=== PATIENT | male | born 1955 | race Caucasian/White ===

== ENCOUNTER 2025-02-10 21:08 | Observation (INO) | payer MEDICARE, SELFPAY ==
--- OUTSIDE RECORDS SUMMARY | 2024-12-28 08:45 | XMS_ITS | Encounter Summary ---
Author Organization [facility] Address [address] [place] [address] Care Team Providers Care Equipment Processor Name Role Phone Ilene Canales P.A.-C. Primary Care Pro vider Reason for Referral * Outpatient (Routine) - Authorized Specialty Diagnoses / Procedures Referred By Contac t Referred To Contact Diagnoses Primary Osteoarthritis Knee Left Procedures lzf-mbkr-nenthdft-elbow arthrocentesis: L knee joint Melva Caceres P.A.-C., P.A. [address] [place] [phone] Phone: tel: fax: [facility] Region Referral ID Status Reason Start Date Expiration Date V isits Requested Visits Authorized [id number] Authorized 12/28/2024 03/30/2026 1 1 Reason for Visit * Reason Comments Arthritis Pain Injection Visit * Outpatient (Routine) - Closed Specialty Diagnoses / Procedures Referred By Contac t Referred To Contact Orthopedic Surgery Diagnoses Primary Osteoarthritis Knee Left Procedures ORS Non-Guided aspiration/injection Melva Caceres P.A.-C., P.A. [address] [place] [address] Phone: tel: fax: [facility] Region Referral ID Status Reason Start Date Expiration Date Visits Re quested Visits Authorized [id number] Closed 12/21/2024 03/23/2026 1 1 Encounter Details Date Type Department Care Team (Latest Contact Info) Description 12/28/2024 8:45 AM CDT Procedure visit Department of Orthopedic Surgery in [place], [place] [address] [phone] Melva Caceres P.A.-C., P.A. [address] [place] [address] Primary Osteoarthritis Knee Left (Primary Dx) Social History Tobacco Use Types Packs/Day Years Used Date Smoking Tobacco: Some Days Cigarettes 0.5 55.1 Started: [birth year]/26/1969 Smokeless Tobacco: Never Alcohol Use Standard Drinks/Week Comments Not Currently 1 (1 standard drink = 0.6 oz pur e alcohol) Humiliation, Afraid, Rape, and Kick questionnair e Answer Date Recorded Within the last year, have y ou been afraid of your partner or ex-partner? No 01/27/2022 Within the last year, have y ou been humiliated or emotionally abused in other ways by your partner or ex-partner? No Within the last year, have y ou been kicked, hit, slapped, or otherwise physically hurt by your partner or ex-partner? No 01/27/2022 Within the last year, have y ou been raped or forced to have any kind of sexual activity by your partner or ex-partner? No 01/27/2022 Hunger Vital Sign Answer Date Recorded Within the past 12 months, y ou worried that your food would run out before you got the money to buy more. Sometimes true Within the past 12 months, t he food you bought just didn't last and you didn't have money to get more. Often true 01/2022 PRAPARE - Transportation Answer Date Re corded In the past 12 months, has l ack of transportation kept you from medical appointments or from getting medications? Yes 01/2022 In the past 12 months, has l ack of transportation kept you from meetings, work, or from getting things needed for daily living? Yes 01/27/2022 Housing Stability Vital Sign Answer Maycol e Recorded In the last 12 months, was t here a time when you were not able to pay the mortgage or rent on time? No 01/27/2022 In the last 12 months, how many places have you lived? 1 01/27/2022 In the last 12 months, was t here a time when you did not have a steady place to sleep or slept in a penitentiary (including now)? No 01/27/2022 Depression Answer Date Recor ded PHQ-9 Total Score (max 27) 5 12/02 Education Answer Date Recorded What is the highest level of school you have completed or the highest degree you have received? 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 - 12/28/2024 8:45 AM CDTAssociated Order(s): evs-icjo-hddmtdoe-elbow arthrocentesis: L knee joint Post-Procedure Diagnose(s): Primary Osteoarthritis Knee Left Knee site- L knee joint : injection only Performed by: Melva Caceres P.A.-C., P.A. Authorized by: Melva Caceres P.A.-C., P.A. PROCEDURE DETAILS Indications: pain Procedure Location knee Knee site: L knee joint Site prep: patient was prepped and draped in usual sterile fashion Patient position: seated Procedural approach: anterolateral Procedure performed: injection only Needle gauge: 21 G Procedural Medication The following medications were administered at the target site(s) Viscosupplement: 16 mg hylan g-f 20 16 mg/2 mL CONSENT Consent obtained: written (Risks, benefits and alternatives were discussed and a written Informed Consent was obtained. Please see Informed Consent form for further details.) UNIVERSAL PROTOCOL All relevant documentation and testing were reviewed and available. All required blood products, implants, devices and or special equipment were made available as applicable. Pre-procedure verification was conducted and the correct site was marked if required. A fire risk and smoke assessment were done as applicable. The procedural time-out to verify correct patient, correct side/site, and procedure was conducted prior to performing the procedure and confirmed in a procedural pause. PRE-PROCEDURE DETAILS Procedure purpose: therapeutic Indications: pain Appropriate hand hygiene, gown, cap, mask, protective eyewear, sterile gloves, skin preparation, sterile drape, and strict aseptic technique were utilized as applicable for the procedure. Site preparation: chlorhexidine SEDATION / ANESTHESIA Anesthesia method: topical application Topical application type: ethyl chloride POST-PROCEDURE DETAILS Procedure completed successfully: yes Complications: no apparent complications Discharge instructions: ice area as needed for comfort #2 Left knee Synvisc injection, he has noticed a lot of improvement already. He will return next week for the final injection in the series. documented in this encounter Plan of Treatment Upcoming Encounters Date Type Department Care Team (Late st Contact Info) Description 03/07/2025 10:00 AM CDT Office Visit Department of Community Internal Medicine in [place], [place] [address] [place] [address] Ilene Canales MPAS, P.Renetta.-CKevin [address] [place] [address] documented as of this encounter Procedures Procedure Name Priority Date/Time Associated Diagnosis Comments ORS NON-GUIDED ASPIRATION/INJECTI ON Routine 12/28/2024 8:45 AM CDT Primary Osteoarthritis Knee Left [place] ARTHCS ASP/INJ MJR JT WO US Routine 12/28/2024 8:45 AM CDT Primary Osteoarthritis Knee Left documented in this encounter Results * [place] ARTHCS ASP/INJ MJR JT WO US (12/28/2024 8:45 AM CDT) Narrative [facility] - 12/28/2024 8:45 AM CDT Melva Caceres P.A.-C., P.Lissy 12/28/2024 9:03 AM Knee site- L knee joint : injection only Performed by: Melva Caceres P.A.-C., PMonie Authorized by: Melva Caceres P.A.-C., PMonie PROCEDURE DETAILS Indications: pain Procedure Location knee Knee site: L knee joint Site prep: patient was prepped and draped in usual sterile fashion Patient position: seated Procedural approach: anterolateral Procedure performed: injection only Needle gauge: 21 G Procedural Medication The following medications were administered at the target site(s) Viscosupplement: 16 mg hylan g-f 20 16 mg/2 mL CONSENT Consent obtained: written (Risks, benefits and alternatives were discussed and a written Informed Consent was obtained. Please see Informed Consent form for further details.) UNIVERSAL PROTOCOL All relevant documentation and testing were reviewed and available. All required blood products, implants, devices and or special equipment were made available as applicable. Pre-procedure verification was conducted and the correct site was marked if required. A fire risk and smoke assessment were done as applicable. The procedural time-out to verify correct patient, correct side/site, and procedure was conducted prior to performing the procedure and confirmed in a procedural pause. PRE-PROCEDURE DETAILS Procedure purpose: therapeutic Indications: pain Appropriate hand hygiene, gown, cap, mask, protective eyewear, sterile gloves, skin preparation, sterile drape, and strict aseptic technique were utilized as applicable for the procedure. Site preparation: chlorhexidine SEDATION / ANESTHESIA Anesthesia method: topical application Topical application type: ethyl chloride POST-PROCEDURE DETAILS Procedure completed successfully: yes Complications: no apparent complications Discharge instructions: ice area as needed for comfort us Melva Caceres P.A.-C., P.AKevin PROCEDURE/MINOR SURGICAL ORDERABLES Final Result [facility] NA documented in this encounter Visit Diagnoses Diagnosis Primary Osteoarthritis Knee Left- Primary documented in this encounter Administered Medications Inactive Administered Medications - up to 3 most recent administrations Medication Order MAR Action Action Date Dose Rate Site hylan g-f 20 injection 16 mg (Synvisc) 16 mg, intra-articular, One-Time Injection, Starting on Thu12/28/24 at 0845, For 1 doseIndications:Primary Osteoarthritis Knee Left Given 12/28/2024 8:45 AM CDT 16 mg documented in this encounter Additional Health Concerns Assessment Noted Time PHQ-9 Depression Total Score: 5 12/03/19 25 10:43 AM CDT documented as of this encounter Care Teams Equipment Processor Relationship Specialty Start Date End Date Ilene Canales MPAS, P.A.-C. [address] [place] [address] [place] [phone] PCP - General 08/28/22 documented as of this encounter
--- OUTSIDE RECORDS SUMMARY | 2025-02-01 08:30 | XMS_ITS | Encounter Summary ---
Author Organization [facility] Address [address] [place] [address] Care Team Providers Care Chief Quality Officer Name Role Phone Ilene Canales P.A.-C. Primary Care Pro vider Reason for Referral * Outpatient (Routine) - Authorized Specialty Diagnoses / Procedures Referred By Antonella pakrs Referred To Contact Diagnoses Primary Osteoarthritis Knee Left Procedures opj-mgzk-zetkewsb-elbow arthrocentesis: L knee joint Melva Caceres P.A.-C., P.A. [address] [address] Phone: tel: fax: [facility] Region Referral ID Status Reason Start Date Expiration Date V isits Requested Visits Authorized [id number] Authorized 02/01/2025 05/04/2026 1 1 Reason for Visit * Reason Comments Arthritis Injection Visit * Appointment Request (Routine) - Closed Specialty Diagnoses / Procedures Referred By Antonella t Referred To Contact Orthopedic Surgery Referral ID Status Reason Start Date Expiration Date Visits Re quested Visits Authorized [id number] Closed 12/21/2024 03/23/2026 1 1 Encounter Details Date Type Department Care Team (Latest Contact Info) Description 02/01/2025 8:30 AM CDT Office Visit Department of Orthopedic Surgery in [address] [phone] Melva Caceres P.A.-C., P.A. [address] [phone] Primary Osteoarthritis Knee Left (Primary Dx) Social History Tobacco Use Types Packs/Day Years Used Date Smoking Tobacco: Some Days Cigarettes 0.5 55.1 Started: [birth year]/26/1969 Smokeless Tobacco: Never Alcohol Use Standard Drinks/Week Comments Not Currently 1 (1 standard drink = 0.6 oz pur e alcohol) [facility] Utilities Answer Date Recorded In the past 12 months has e electric, gas, oil, or water company threatened to shut off services in your home? No 02/01/2025 Humiliation, Afraid, Rape, and Kick questionnair e [...] you didn't have money to get more. Sometimes true 06/2025 PRAPARE - Transportation Answer Date Re corded In the past 12 months, has l ack of transportation kept you from medical appointments or from getting medications? Yes 01/22 In the past 12 months, has l ack of transportation kept you from meetings, work, or from getting things needed for daily living? Yes 02/01/2025 Depression Answer Date Recor ded PHQ-9 Total Score (max 27) 10 02/01 Housing Stability Answer Date Recorded What is your living situation today? I have a [place] place to live 02/01/2025 Education Answer Date Recorded What is the highest level of school you have completed or the highest degree you have received? 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 - 02/01/2025 8:30 AM CDTAssociated Order(s): xub-pzou-gesrosey-elbow arthrocentesis: L knee joint Post-Procedure Diagnose(s): Primary [...] instructions: ice area as needed for comfort #3 Left knee Synvisc injection performed today. We will contact him in a few weeks to see how he isfeeling after this series of injections. documented in this encounter Plan of Treatment Upcoming Encounters Date Type Department Care Team (Late st Contact Info) Description 03/07/2025 10:00 AM CDT Office Visit Department of Community Internal Medicine in [address] [phone] Ilene Canales MPAS, P.A.-C. [address] [place] [phone] documented as of this encounter Procedures Procedure Name Priority Date/Time Associated Diagnosis Comments [place] ARTHCS ASP/INJ MJR JT WO US Routine 02/01/2025 8:30 AM CDT Primary Osteoarthritis Knee Left documented in this encounter Results * [place] ARTHCS ASP/INJ MJR JT WO US (02/01/2025 8:30 AM CDT) Narrative [facility] - 02/01/2025 8:30 AM CDT Melva Caceres P.A.-C., P.A. 02/01/2025 8:30 AM Knee site- L knee joint : [...] instructions: ice area as needed for comfort Melva Sim.Renetta.Delio., P.A. PROCEDURE/MINOR SURGICAL ORDERABLES Final Result [facility] NA documented in this encounter Visit Diagnoses Diagnosis Primary Osteoarthritis Knee Left- Primary documented in this encounter Administered Medications Inactive Administered Medications - up to 3 most recent administrations Medication Order MAR Action Action Date Dose Rate Site hylan g-f 20 injection 16 mg (Synvisc) 16 mg, intra-articular, One-Time Injection, Starting on Thu02/01/25 at 0830, For 1 doseIndications:Primary Osteoarthritis Knee Left Given 02/01/2025 8:30 AM CDT 16 mg documented in this encounter Additional Health Concerns Assessment Noted Time PHQ-9 Depression Total Score: 10 025 3:00 PM CDT documented as of this encounter Care Teams Chief Quality Officer Relationship Specialty Start Date End Date Ilene Canales MPAS, P.A.-C. [address] [place] [phone] PCP - General 08/28/22 documented as of this encounter
--- OUTSIDE RECORDS SUMMARY | 2025-02-01 15:00 | XMS_ITS | Encounter Summary ---
Author Organization [facility] Address [address] [place] [address] Care Team Providers Care Criminal Justice Instructor Name Role Phone Ilene Canales P.A.-C. Primary Care Pro vider Reason for Referral * Outpatient (Routine) - Authorized Specialty Diagnoses / Procedures Referred By Antonella t Referred To Contact [facility] Ilene Canales MPAS, P.A.-C. [address] [place] [address] Phone: tel: fax: [facility] Region Referral ID Status Reason Start Date Expiration Date V isits Requested Visits Authorized [id number] Authorized 02/01/2025 08/03/2026 1 1 Reason for Visit * Reason Comments Follow-up 2 month f/u depressi on, left ear pain x1 month, fatigue * Outpatient (Routine) - Closed Specialty Diagnoses / Procedures Referred By Contanant t [facility] Ilene Canales MPAS, P.A.-C. [address] [place] [address] Phone: tel: fax: [facility] Region Referral ID Status Reason Start Date Expiration Date Visits Re quested Visits Authorized [id number] Closed 12/02/2024 06/03/2026 1 1 Encounter Details Date Type Department Care Team (Late st Contact Info) Description 02/01/2025 3:00 PM CDT Office Visit Department of [facility] in [place], [place] [address] [facility] [place] [phone] Ilene Canales MPAS PKevinAKevin-C. [address] [facility] [place] [address] Depression Major Recurrent Moderate (HCC) (Primary Dx); Narcolepsy (HCC); Dysfunction Erectile; Pain Ear Left; History Of Falling Social History Tobacco Use Types Packs/Day Years Used Date Smoking Tobacco: Some Days Cigarettes 0.5 55.1 Started: [birth year]/26/1969 Smokeless Tobacco: Never Alcohol Use Standard Drinks/Week Comments Not Currently 1 (1 standard drink = 0.6 oz pur e alcohol) [facility] Utilities Answer Date Recorded In the past [address] [facility], gas, oil, or water Myrl threatened to shut off services in your [...] your living situation today? I have a [facility] place to live 02/01/2025 Education Answer Date Recorded What is the highest level of school you have completed or the highest degree you have received? 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 Occupation Industry Job Start Date Job End Date retired Not on file Not on file Not on file documented as of this encounter Last Filed Vital Signs Vital Sign Reading Time Taken Comments Blood Pressure 120/78 02/01/2025 3:[address] rage Pulse 96 02/01/2025 3:11 PM CDT Temperature 35.8 C (96.4 F) 02/01/2025 3:11 PM CDT Respiratory Rate 20 02/01/2025 3:11 PM CDT Oxygen Saturation - - Inhaled Oxygen Concentration - - Weight 85.8 kg (189 lb 2.5 oz) 02/01/2025 3:11 P M CDT Height - - Body Mass Index 28.67 12/02/2024 10:37 AM CDT documented in this encounter Progress Notes * Ilene Canales MPAS, P.A.-C. - 02/01/2025 3:00 PM CDT SUBJECTIVE CHIEF COMPLAINT/REASON FOR VISIT Chief Complaint Patient presents with Follow-up 2 month f/u depression, left ear pain x1 month, fatigue HISTORY OF PRESENT ILLNESS Hank Spangler is a pleasant 69 y.o. male with a past medical history of depression, anxiety,narcolepsy who presents to the clinic today for follow-up. At our previous clinic visit, fluoxetinewas increased from 40 mg daily to 60 mg daily. He has not felt this dose increase has been beneficial for mental health. He feels he has continued to struggle with depression, not much anxiety. He floyd cummins feels sad most of the time but he does not feel depressed. He feels little energy and decreased motivation to complete tasks. He has been taking more naps during the day to lack of ambition. He used to walk outside but has not felt as though he has motivation to do this. He is prescribed mirtazapine at bedtime but says he has not been taking this and does not feel it is needed. Prozac has nev er been beneficial for him for depression since he started taking this medication years ago. He is not sure if he has been on other antidepressant medications previously. He also has concern of left ear pain ongoing intermittently for 1 month. Denies itching or drainage from ear. Denies a sensationof muffled hearing or hearing loss in left ear. He would also like a refill for Viagra and wonders about a new formulation of Viagra. The following portions of the patient's history were reviewed and updated as appropriate: current medications and problem list. Problem List[1] ALLERGIES/CONTRAINDICATIONS Allergies[2] CURRENT MEDICATIONS Current Medications[3] OBJECTIVE VITAL SIGNS Vitals: 02/01/25 1511 BP: 120/78 Pulse: 96 Resp: 20 Temp: (!) 35.8 ??C PHYSICAL EXAMINATION General: Well-nourished, well-developed 69 y.o. in no apparent distress. Awake, alert, age appropriate. HEENT: Left ear canal with mild edema compared to right ear canal. No drainage from ear canals bilaterally. Difficult time fully visualizing left tympanic membrane due to pain with otoscope exam leftear. I can see approximately 80% of the TM and it appears cloudy without perforation. No erythema of left TM. ASSESSMENT / PLAN IMPRESSION/REPORT/PLAN: #1 Depression Major Recurrent Moderate (HCC) PHQ-9 score of 10 in clinic today. He has symptoms suggestive of depression such as low ambition, decreased energy, and sad mood. He did not find dose increase in fluoxetine beneficial at our last visit. Today, we will transition fluoxetine 60 mg daily to sertraline 100 mg daily. Per chart review, he has been prescribed sertraline previously but I do not see a clear reason why this medication wasdiscontinued. Follow-up in 1 month. #2 Narcolepsy (HCC) He will continue to follow with Sleep Medicine and will continue Adderall 30 mg TID. #3 Dysfunction Erectile Refill of Viagra has been provided #4 Pain Ear Left We will treat for mild otitis externa left ear with hydrocortisone-acetic acid ear drops for 7 days. Encouraged patient to follow-up if symptoms do not improve. #5 History Of Falling We did not discuss any recent falls today. Other orders - [facility] office visit (clinic) - sertraline (Zoloft) 100 mg tablet; Take 1 tablet (100 mg total) by mouth daily., Starting Thu02/01/2025, Normal - [facility] office visit (clinic); Future; Expected date: 03/03/2025 - hydrocortisone-acetic acid (Acetasol HC) 1-2 % otic drops; Administer 4 drops into the left ear 4(four) times a day for 7 days., Starting Thu02/01/2025, Until 02/12/2025, Normal - sildenafiL (Viagra) 100 mg tablet; Take 1 tablet (100 mg total) by mouth daily as needed for erectile dysfunction., Starting Thu02/01/2025, Normal If symptoms worsen or do not improve, patient is instructed to seek further medical attention. All questions have been answered. Patient demonstrated understanding and verbalized agreement with the plan. Total time spent: 30 minutes Follow-up: 1 month PAVEL Ferraro, P.A.-C. [1] Patient Active Problem List Diagnosis Dysthymia Hypertension Essential Primary Narcolepsy (HCC) Gastroesophageal Reflux Disease Attention Deficit Disorder Combined Type Apnea Sleep Obstructive Benign Prostatic Hyperplasia Without Obstruction Benign paroxysmal positional vertigo Depression Major Recurrent Moderate (HCC) Primary Osteoarthritis Knee Left Diabetes Mellitus Type 2 Hyperglycemia (HCC) Herniated Disc Lumbar History Of Falling Hyperlipidemia Tobacco Use Pain [place] Toe Left Alcoholism Personal History ([facility]) Sciatica Right Pain Low Back Unspecified Portal Vein Thrombosis Tear Rotator Cuff Complete Non Trauma Left Rosacea Dysfunction Erectile Anxiety Generalized Disorder [2] No Known Allergies [3] Current Outpatient Medications: atorvastatin (LIPITOR) 40 mg tablet, take one tablet by mouth every day, Disp: 90 tablet, Rfl: 3 dextroamphetamine-amphetamine (AdderalL) 30 mg tablet, Take 1 tablet (30 mg total) by mouth 3 (three) times a day for 30 days., Disp: 90 tablet, Rfl: 0 DME CPAP, DME Order, Disp: 1 each, Rfl: 11 hydroCHLOROthiazide (HydroDiuril) 25 mg tablet, TAKE 1 TABLET (25 MG TOTAL) BY MOUTH DAILY., Disp: 90 tablet, Rfl: 3 ketoconazole (NIZORAL) 2 % shampoo, APPLY TOPICALLY TWICE A WEEK. APPLY TO DAMP SKIN, LATHER, LEAVEON 5 MINUTES AND RINSE, Disp: 120 mL, Rfl: 11 lisinopriL (PRINIVIL,ZESTRIL) 40 mg tablet, Take 1 tablet (40 mg total) by mouth daily., Disp: 90 tablet, Rfl: 3 meloxicam (Mobic) 15 mg tablet, TAKE 1 TABLET BY MOUTH ONCE DAILY NEEDED FOR PAIN OR MODERATE PAIN OR SCORE 4-6 OF 10, Disp: 90 tablet, Rfl: 1 metFORMIN XR (Glucophage-XR) 500 mg 24 hr tablet, TAKE TWO TABLETS(1000MG) BY MOUTH DAILY WITH BREAKFAST, Disp: 180 tablet, Rfl: 3 metroNIDAZOLE (MetroCream) 0.75 % cream, APPLY 1 APPLICATION TOPICALLY DAILY., Disp: 45 g, Rfl: 2 pantoprazole (Protonix) 40 mg EC tablet, Take 1 tablet (40 mg total) by mouth daily as needed for heartburn., Disp: , Rfl: sildenafiL (Viagra) 100 mg tablet, Take 1 tablet (100 mg total) by mouth daily as needed for erectile dysfunction., Disp: 20 tablet, Rfl: 0 tamsulosin (Flomax) 0.4 mg 24 hr capsule, TAKE ONE CAPSULE BY MOUTH ONCE DAILY., Disp: 90 capsule, Rfl: 3 hydrocortisone-acetic acid (Acetasol HC) 1-2 % otic drops, Administer 4 drops into the left ear 4 (four) times a day for 7 days., Disp: 10 mL, Rfl: 0 sertraline (Zoloft) 100 mg tablet, Take 1 tablet (100 mg total) by mouth daily., Disp: 90 tablet, Rfl: 0 documented in this encounter Plan of Treatment Upcoming Encounters Date Type Department Care Team (Late st Contact Info) Description 03/07/2025 10:00 AM CDT Office Visit [facility] of [facility] in [address] [place] [phone] Ilene Canales MPAS, PKevinA.-C. [address] [facility] [place] [phone] Scheduled Referrals Name Type Priority Associated Diagnoses Orde r Schedule [facility] office visit (clinic) Outpatient Referral Routine Expected: 03/03/2025 (Approximate), Expires: 05/04/2026 documented as of this encounter Visit Diagnoses Diagnosis Depression Major Recurrent Moderate (HCC)- Primary Narcolepsy (HCC) Dysfunction Erectile Pain Ear Left History Of Falling documented in this encounter Additional Health Concerns Assessment Noted Time PHQ-9 Depression Total Score: 10 025 3:00 PM CDT documented as of this encounter Care Teams Criminal Justice Instructor Relationship Specialty Start Date End Date Ilene Canales MPAS, P.A.-C. [address] [place] [phone] PCP - General 08/28/22 documented as of this encounter
[2025-02-10] VITALS (13 sets, daily range): BP systolic 79–111; BP diastolic 41–67; PULSE 74–98; RESP 7–35; TEMP 36.6; O2SAT 93–97; BMI 28.5
--- NOTE | 2025-02-10 21:22 | ED.SOB ---
HPI - SOB/Dyspnea General Time Seen by Provider: 21:22 Date Seen: 02/10/25 Chief Complaint: Shortness of Breath/Dyspnea Stated Complaint: SOB, Dizzy, Confusion Time Seen by Provider: 02/10/25 21:21 Source: patient and RN notes reviewed Mode of arrival: ambulatory Limitations: no limitations History of Present Illness HPI Narrative: This 70-year-old male is ambulatory into the ED coming in with episodes of feeling short of breath and dizzy. He noted left hip, left lower groin pain today as well. He has had pain in his back and into his neck. He did walk outside for while today, his daughter did call in and states he was outside a lot today but he states he just walked somewhere. She states when he gets these spells he turns really white gets confused and will stumble around. He denies any alcohol. He denies any abdominal pain now, no chest pain, no palpitations. His daughter did note the only other time she has seen him act like this is when his blood pressure has been low. She states he has had spells of low blood pressure, I a cannot get any further details other than this. He has had no fevers chills, is not feeling sick. He only has a history of hypertension per report. Did look in [facility] for history: He has had a history of depression, anxiety, narcolepsy for which he was most recently seen at [facility] in [place]. Hypertension GERD, ADD combined type, obstructive sleep apnea, BPH, benign paroxysmal positional vertigo, osteoarthritis, type 2 diabetes, lumbar disc herniation, history of falling, hyperlipidemia, tobacco use, history of alcohol use, portal vein thrombosis, left nontraumatic rotator cuff tear, rosacea, rectal dysfunction are all listed. I do see a kidney stone analysis ordered in labs. Do not see old creatinine is a outside of the 1 we have from 2003 here which was 0.8. He has a diagnosis of kidney stone from an ED visit here on 06/30/2019. Related Data Home Medications ?Medication ?Instructions ?Recorded ?Confirmed atorvastatin 40 mg tablet 40 mg PO DAILY 02/10/25 02/10/25 dextroamphetamine-amphetamine 30 1 tab PO 3XD 02/10/25 02/10/25 mg tablet hydrochlorothiazide 25 mg tablet 25 mg PO DAILY 02/10/25 02/10/25 Allergies Allergy/AdvReac Type Severity Reaction Status Date / Time No Known Drug Allergies Allergy Verified 01/30/23 19:50 Review of Systems Status of ROS: Reports: 6 or more systems reviewed and unremarkable except as noted in History and below [facility] Social History Smoking Status: Current every day smoker Non-prescribed substance use: denies use Exam Const: Vital Signs, click to edit/add: Vital Signs - 24 hr 02/10/25 21:17 02/10/25 21:24 02/10/25 21:27 Temperature 97.8 F Pulse Rate 91 Pulse Rate [Pulse Oximeter] 98 Respiratory Rate 20 22 Blood Pressure 79/57 L Blood Pressure [Ri ght Upper Arm] 82/67 L Pulse Oximetry 96 95 94 Oxygen Delivery Me thod Room Air 02/10/25 21:36 02/10/25 22:06 02/10/25 22:16 Temperature Pulse Rate 83 80 Pulse Rate [Pulse Oximeter] Respiratory Rate 18 15 18 Blood Pressure 82/51 L 96/63 82/54 L Blood Pressure [Ri ght Upper Arm] Pulse Oximetry 97 94 Oxygen Delivery Me thod 02/10/25 22:33 02/10/25 22:46 02/10/25 22:58 Temperature Pulse Rate 79 77 78 Pulse Rate [Pulse Oximeter] Respiratory Rate 22 19 18 Blood Pressure 91/49 L 86/41 L 97/53 L Blood Pressure [Ri ght Upper Arm] Pulse Oximetry 95 93 95 Oxygen Delivery Me thod 02/10/25 23:01 02/10/25 23:17 02/10/25 23:31 Temperature Pulse Rate 76 76 74 Pulse Rate [Pulse Oximeter] Respiratory Rate 7 L 35 H 16 Blood Pressure 111/57 L 94/45 L 94/44 L Blood Pressure [Ri ght Upper Arm] Pulse Oximetry 97 94 96 Oxygen Delivery Me thod 02/10/25 23:46 Temperature Pulse Rate 75 Pulse Rate [Pulse Oximeter] Respiratory Rate 16 Blood Pressure 101/49 L Blood Pressure [Ri ght Upper Arm] Pulse Oximetry 94 Oxygen Delivery Me thod This 70-year-old male is alert, interactive, no apparent distress. He is alert, interactive but hypotensive. He is able to speak in complete sentences. Skin is warm but sweaty. No rash noted. Pupils are equal round, conjugate gaze, sclera clear. Symmetrical facial function. Neck supple, no adenopathy, no thyromegaly masses or nodules, jugular venous distension. Lungs are clear, good air entry, no wheezing or crackles he is able to sit up. CV regular rate and rhythm, no murmur, normal S1-S2, no S3-S4. Abdomen is completely soft, nontender, nondistended, no organomegaly, rebound or guarding. He has no groin pain, no pain with range of motion of his left hip. No lower extremity edema noted. Patient was ambulatory into the ED of his own accord. Documenting provider has reviewed patient's vital signs: yes Course Course ED Course: This patient is coming in with a multitude of complaints and hypotension. His daughter is reporting other spells of hypotension but no really reason for this. Need to consider infectious etiology including sepsis, cardiopulmonary issues, will get D-dimer looking at vascular issues including PEs, dissection. Patient is currently pain-free and symptom-free right now outside of his blood pressure being low. Will initiate a L of fluids. Will be doing a full complement of labs. This left hip or groin pain, left lower quadrant pain may have been consistent with a kidney stone. His creatinine has jumped in the last 2 years and is currently 2.6, do not have anything in between to compare to. Need to look for renal issues, obstructive pathology. Reevaluation(s) Time of Reevaluation #1: 23:01 Reevaluation #1: Patient is completed 2 L of fluid, still has not urinated. Bladder is really decompressed on CT from what I am seeing. Will give 3 L of fluids while we await CT to be read. Consultations Consultation #1: Paged the night hospitalist Dr. Ingram. She is likely to take a while to call back as she was just paged to a rapid response. 1:00 a.m.: Did speak with Dr. Ingram. Reviewed patient's case. Will get a repeat lactate, she did want blood cultures as well. Will also get an alcohol as this was missed on initial labs. Will get urine drug screen at her request. She would like him to have 2 g IV Rocephin in case this is urinary infection and his bladder just really is not showing much because he is dehydrated. She does accept care. Patient is updated. He is agreeable to stay. Time: 00:03 Vital Signs Vital signs: Initial Vital Signs Temperature 97.8 F 02/10/25 21:17 Temperature Source Temporal Artery Scan 02/10/25 21:17 Pulse Rate 98 02/10/25 21:17 Respiratory Rate 20 02/10/25 21:17 Blood Pressure 82/67 L 02/10/25 21:17 Blood Pressure Mean 72 02/10/25 21:17 Blood Pressure Position Sitting 02/10/25 21:17 Pulse Oximetry 96 02/10/25 21:17 Oxygen Delivery Method Room Air 02/10/25 21:17 Vital Signs Temperature 97.8 F 02/10/25 21:17 Pulse Rate 98 02/10/25 21:17 Respiratory Rate 20 02/10/25 21:17 Blood Pressure 82/67 L 02/10/25 21:17 Pulse Oximetry 96 02/10/25 21:17 Oxygen Delivery Method Room Air 02/10/25 21:17 Temperature 97.8 F 02/10/25 21:17 Pulse Rate 75 02/10/25 23:46 Respiratory Rate 16 02/10/25 23:46 Blood Pressure 101/49 L 02/10/25 23:46 Pulse Oximetry 94 02/10/25 23:46 Oxygen Delivery Method Room Air 02/10/25 21:17 Medications Administered Medications: Generic Name Dose Route Start Last Admin Trade Name Freq PRN Reason Stop Dose Admin Sodium Chloride 1,000 mls @ 500 mls/hr 02/10/25 23:01 02/11/25 00:27 0.9 % Sodium Chloride 1000 Ml IV 02/11/25 01:00 Infused .Q2H FERMÍN Infusion Discontinued Medications Generic Name Dose Route Start Last Admin Trade Name Freq PRN Reason Stop Dose Admin Sodium Chloride 1,000 mls @ 1,000 mls/hr 02/10/25 21:29 02/10/25 22:31 0.9 % Sodium Chloride 1000 Ml IV 02/10/25 22:28 Infused .Q1H FERMÍN Infusion Sodium Chloride 1,000 mls @ 500 mls/hr 02/10/25 22:12 02/11/25 00:28 0.9 % Sodium Chloride 1000 Ml IV 02/11/25 00:11 Infused .Q2H FERMÍN Infusion MDM - SOB/Dyspnea Lab Data Attestation: I reviewed the patient's lab results. Labs: Lab Results 02/10/25 02/10/25 02/10/25 Range/Units 21:25 21:40 23:32 WBC 13.04 H (4.50-11.00) K/uL RBC 4.82 (4.30-5.90) m/uL Hgb 14.9 (13.5-17.5) gm/dL Hct 44.0 (37.0-53.0) % MCV 91 (80-100) fL MCH 31 (26-34) pg MCHC 34 (32-36) gm/dL RDW Coeff of Joyce 13.6 (11.5-15.5) % Plt Count 305 (140-440) K/uL Neut % (Auto) 74.3 H (42.0-72.0) % Lymph % (Auto) 10.8 L (20-44) % [place] % (Auto) 7.5 (0.0-11.0) % Eos % (Auto) 6.3 (0.0-7.0) % Baso % (Auto) 0.6 (0.0-3.0) % Neut # (Auto) 9.70 H (1.7-7.0) K/uL Lymph # (Auto) 1.40 (0.90-2.90) K/uL [place] # (Auto) 1.00 H (0.00-0.90) K/UL Eos # (Auto) 0.80 H (0.00-0.50) K/uL Baso # (Auto) 0.10 (0.00-0.30) K/uL Abs Immat Gran (auto) 0.10 (0.00-0.30) K/uL Imm/Tot Granulo (auto) 0.5 % INR 0.90 L (0.91-1.10) APTT 29 (23-33) Seconds D-Dimer Quant (PE/DVT) 0.47 (0.00-0.50) ug/ml VBG pH 7.338 (7.32-7.43) VBG pCO2 45 (40-50) mmHG VBG pO2 31.1 (25-47) mmHG VBG HCO3 24 (21-28) mmol/L Sodium 139 (135-149) mmol/L Potassium 3.4 L (3.6-5.1) mmol/L Chloride 104 (96-114) mmol/L Carbon Dioxide 22 (20-32) mmol/L Anion Gap 13 (7-15) mEq/L BUN 30 (7-30) mg/dL Creatinine 2.4 H (0.5-1.5) mg/dL Estimated Creat Clear 26.78 Estimated GFR 28 ml/min Glucose 192 H (60-115) mg/dL Lactate 2.8 H (0.5-1.9) mmol/L Calcium 9.7 (8.4-10.6) mg/dL Total Bilirubin 0.6 (0.1-1.5) mg/dL AST 23 (12-35) U/L ALT 28 (4-50) U/L Alkaline Phosphatase 79 (40-150) U/L Troponin I 0.02 (0.01-0.04) ng/mL C-Reactive Protein < 0.5 L (0.5-1.0) mg/dL NT-Pro-B Natriuret Pep 278 (See Note) pg/mL Total Protein 7.0 (6.0-8.3) g/dL Albumin 4.3 (3.3-5.0) g/dL Procalcitonin 0.17 (<0.50) ng/mL Urine Color Yellow (Yellow) Urine Appearance Slightly Cloudy A (Clear) Urine pH 5.5 (5.0-8.5) Ur Specific [place] >= 1.030 (1.000-1.030) Urine Protein 3+ A (Negative) Urine Glucose (UA) Negative (Negative) Urine Ketones 1+ A (Negative) Urine Blood 3+ A (Negative) Urine Nitrite Negative (Negative) Urine Bilirubin 1+ A (Negative) Urine Urobilinogen 0.2 (0.2-1.0) Ur Leukocyte Esterase 1+ A (Negative) Urine RBC 5-10 A (0-2) Urine WBC 2-5 (0-5) Ur Squamous Epith Cells None (None-Few) Urine Bacteria None (None) SARS-CoV-2 (PCR) Negative SARS-CoV-2 (Negative) Influenza Type A (PCR) Negative PCR FLU A (Negative) Influenza Type B (PCR) Negative PCR FLU B (Negative) RSV (PCR) Negative PCR RSV (Negative) POC Creatinine 2.6 H (0.6-1.3) mg/dl POC Troponin I 0.01 (0.01-0.04) ng/ml 02/10/25 Range/Units 23:40 WBC (4.50-11.00) K/uL RBC (4.30-5.90) m/uL Hgb (13.5-17.5) gm/dL Hct (37.0-53.0) % MCV (80-100) fL MCH (26-34) pg MCHC (32-36) gm/dL RDW Coeff of Joyce (11.5-15.5) % Plt Count (140-440) K/uL Neut % (Auto) (42.0-72.0) % Lymph % (Auto) (20-44) % [place] % (Auto) (0.0-11.0) % Eos % (Auto) (0.0-7.0) % Baso % (Auto) (0.0-3.0) % Neut # (Auto) (1.7-7.0) K/uL Lymph # (Auto) (0.90-2.90) K/uL [place] # (Auto) (0.00-0.90) K/UL Eos # (Auto) (0.00-0.50) K/uL Baso # (Auto) (0.00-0.30) K/uL Abs Immat Gran (auto) (0.00-0.30) K/uL Imm/Tot Granulo (auto) % INR (0.91-1.10) APTT (23-33) Seconds D-Dimer Quant (PE/DVT) (0.00-0.50) ug/ml VBG pH (7.32-7.43) VBG pCO2 (40-50) mmHG VBG pO2 (25-47) mmHG VBG HCO3 (21-28) mmol/L Sodium (135-149) mmol/L Potassium (3.6-5.1) mmol/L Chloride (96-114) mmol/L Carbon Dioxide (20-32) mmol/L Anion Gap (7-15) mEq/L BUN (7-30) mg/dL Creatinine (0.5-1.5) mg/dL Estimated Creat Clear Estimated GFR ml/min Glucose (60-115) mg/dL Lactate (0.5-1.9) mmol/L Calcium (8.4-10.6) mg/dL Total Bilirubin (0.1-1.5) mg/dL AST (12-35) U/L ALT (4-50) U/L Alkaline Phosphatase (40-150) U/L Troponin I (0.01-0.04) ng/mL C-Reactive Protein (0.5-1.0) mg/dL NT-Pro-B Natriuret Pep (See Note) pg/mL Total Protein (6.0-8.3) g/dL Albumin (3.3-5.0) g/dL Procalcitonin (<0.50) ng/mL Urine Color (Yellow) Urine Appearance (Clear) Urine pH (5.0-8.5) Ur Specific [place] (1.000-1.030) Urine Protein (Negative) Urine Glucose (UA) (Negative) Urine Ketones (Negative) Urine Blood (Negative) Urine Nitrite (Negative) Urine Bilirubin (Negative) Urine Urobilinogen (0.2-1.0) Ur Leukocyte Esterase (Negative) Urine RBC (0-2) Urine WBC (0-5) Ur Squamous Epith Cells (None-Few) Urine Bacteria (None) SARS-CoV-2 (PCR) (Negative) Influenza Type A (PCR) (Negative) Influenza Type B (PCR) (Negative) RSV (PCR) (Negative) POC Creatinine (0.6-1.3) mg/dl POC Troponin I 0.02 (0.01-0.04) ng/ml Imaging Data CT scan - abdomen: Attestation: I have reviewed the pertinent imaging results. Radiologist's impression: Patient: TERRY APONTE Facility:?[facility] Patient ID:?[id number] Site Patient ID:?[id number]. Site :?[id number] Study:?CT-Abdomen/Pelvis WITHOUT-02/10/2025 10:06:45 PM Ordering Physician:Dionisio Fraser Final Report: Indication: Left lower quadrant abdominal pain, history of kidney stones Technique: Noncontrast CT through the abdomen and pelvis with multiplanar reformats. Comparison: CT chest abdomen pelvis performed 06/24/2018 Findings: Lower chest: No acute abnormality appreciated. Hepatobiliary: No significant parenchymal abnormality is appreciated. Cholelithiasis without CT evidence of cholecystitis. Spleen: Unremarkable. Pancreas: No acute abnormality appreciated. Adrenal glands: No acute abnormality appreciated. Kidneys: Chronic nonobstructing bilateral renal stones noted. No hydronephrosis. Bowel: No obstruction. Diverticulosis. No focal perienteric or pericolonic stranding is appreciated. The appendix is visualized and appears unremarkable. Vascular: Calcified atherosclerosis. Lymph nodes: No gross lymphadenopathy. Peritoneum: No free air. No free fluid. : Mild wall thickening of the decompressed bladder. Soft tissues: No acute abnormality appreciated. Bones: No acute fracture. No lytic or blastic lesion. Degenerative changes of the spine and pelvis. Chronic L1 compression fracture. Impression: 1. Bilateral nonobstructing renal stones. No hydronephrosis. 2. Mild wall thickening of a decompressed bladder, nonspecific but can be correlated for UTI/cystitis. 3. Diverticulosis. 4. Cholelithiasis. Please note that all CT scans at this facility use dose modulation, iterative reconstruction, and/or weight-based dosing when appropriate to reduce radiation dose to as low as reasonably achievable. Dictated by Naveen Kim MD @ 02/10/2025 11:00:06 PM (Electronic Signature) Chest x-ray: Attestation: I have reviewed the pertinent imaging results. Radiologist's impression: Patient: TERYR APONTE Facility:?[facility] Patient ID:?[id number] Site Patient ID:?[id number]. Site :?[id number] Study:?XRay-Chest 1V-02/10/2025 10:07:09 PM Ordering Physician:Dionisio Fraser Final Report: Indication: Hypotension, upper back pain Technique: Single view of the chest Comparison: Chest radiograph performed 12/30/2018 Findings/Impression: No acute cardiopulmonary process detected. Dictated by Naveen Kim MD @ 02/10/2025 10:39:59 PM (Electronic Signature) ECG Data Attestation: I personally reviewed and interpreted this ECG as follows: (Normal sinus rhythm, 92 beats per minute. No ischemia, no infarct.) ECG interpretation date: 02/10/25 ECG interpretation time: 21:51 Prior ECG tracings: not available for review Discharge Plan Discharge Clinical Impression: Acute hypotension Patient Disposition: Admitted As Observation
--- NOTE | 2025-02-10 21:27 | CRLHL7_ITS ---
For Patients: As a result of the Cures Act, medical imaging exams and procedure reports are released immediately into your electronic medical record. You may view this report before your referring provider. If you have questions, please contact your health care provider. Indication: Hypotension, upper back pain Technique: Single view of the chest Comparison: Chest radiograph performed 12/30/2018 Findings/Impression: No acute cardiopulmonary process detected. Dictated by Naveen Kim MD @ 02/10/2025 10:39:59 PM (Electronically Signed)
[2025-02-10] MEDS: 0.9 % SODIUM CHLORIDE 1000 ml 1,000 ML IV (21:31)
--- NOTE | 2025-02-10 21:37 | CRLHL7_ITS ---
For Patients: As a result of the Century Cures Act, medical imaging exams and procedure reports are released immediately into your electronic medical record. You may view this report before your referring provider. If you have questions, please contact your health care provider. Indication: Left lower quadrant abdominal pain, history of kidney stones Technique: Noncontrast CT through the abdomen and pelvis with multiplanar reformats. Comparison: CT chest abdomen pelvis performed 06/24/2018 Findings: Lower chest: No acute abnormality appreciated. Hepatobiliary: No significant parenchymal abnormality is appreciated. Cholelithiasis without CT evidence of cholecystitis. Spleen: Unremarkable. Pancreas: No acute abnormality appreciated. Adrenal glands: No acute abnormality appreciated. Kidneys: Chronic nonobstructing bilateral renal stones noted. No hydronephrosis. Bowel: No obstruction. Diverticulosis. No focal perienteric or pericolonic stranding is appreciated. The appendix is visualized and appears unremarkable. Vascular: Calcified atherosclerosis. Lymph nodes: No gross lymphadenopathy. Peritoneum: No free air. No free fluid. : Mild wall thickening of the decompressed bladder. Soft tissues: No acute abnormality appreciated. Bones: No acute fracture. No lytic or blastic lesion. Degenerative changes of the spine and pelvis. Chronic L1 compression fracture. Impression: 1. Bilateral nonobstructing renal stones. No hydronephrosis. 2. Mild wall thickening of a decompressed bladder, nonspecific but can be correlated for UTI/cystitis. 3. Diverticulosis. 4. Cholelithiasis. Please note that all CT scans at this facility use dose modulation, iterative reconstruction, and/or weight-based dosing when appropriate to reduce radiation dose to as low as reasonably achievable. Dictated by Naveen Kim MD @ 02/10/2025 11:00:06 PM (Electronically Signed)
[2025-02-10 21:48] LABS: HCO3 VBG 24 mmol/L (21-28); Lactate* 2.8 mmol/L (0.5-1.9); PCO2 VBG 45 mmHG (40-50); PO2 VBG 31.1 mmHG (25-47); pH VBG 7.338 (7.32-7.43)
--- OUTSIDE RECORDS SUMMARY | 2025-02-10 21:48 | XMS_ITS | Encounter Summary ---
Author Organization [facility] Address [address] [place] [id number] Care Team Providers Care History Department Chair Name Role Phone Ilene Canales P.A.-C. Primary Care Pro vider Reason for Visit * Reason Onset Date Comments Med Refill 01/25/2025 Encounter Details Date Type Department Care Team (Late st Contact Info) Description 01/25/2025 Clinical [facility] in [place], [place] [address] [place] [phone] Naren Wolfe M.D. [address] [place] [phone] Med Refill Social History Tobacco Use Types Packs/Day Years [...] place to sleep or slept in a longterm (including now)? No 01/27/2022 Depression Answer Date Recor ded PHQ-9 Total Score (max 27) 5 12/02 Education Answer Date Recorded What is the highest level of school you have completed or the highest degree you have received? 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 Next visit: ordered but not yet scheduled; due 02/16/25, can be virtual or in person Prescription request matches current plan of care. Date of last prescription renewal: 12/30/2024 ASSESSMENT/PLAN Prescription pended for prescriber review. documented in this encounter Plan of Treatment Upcoming Encounters Date Type Department Care Team (Late st Contact Info) Description 03/07/2025 10:00 AM CDT Office Visit [facility] in [place], [place] [address] [place] [phone] Ilene Canales MPAS, P.A.-C. [address] [place] [phone] documented as of this encounter Visit Diagnoses Diagnosis Narcolepsy (HCC) documented in this encounter Additional Health Concerns Assessment Noted Time PHQ-9 Depression Total Score: 5 12/03/19 25 10:43 AM CDT documented as of this encounter Care Teams History Department Chair Relationship Specialty Start Date End Date Ilene Canales MPAS, P.A.-C. [address] [place] [phone] PCP - General 08/28/22 documented as of this encounter
--- OUTSIDE RECORDS SUMMARY | 2025-02-10 21:48 | XMS_ITS | Encounter Summary ---
Author Organization [facility] Address [address] [place] [address] Care Team Providers Care Copy Camera Operator Name Role Phone Ilene Canales P.AKevin-CKevin Primary Care Pro vider Encounter Details Date Type Department Care Team (Late st Contact Info) Description 12/21/2024 Results Follow-Up [facility] in [place], [place] [address] [facility] [place] [phone] Ilene Canales MPAS PKevinA.-CKevin [address] [place] [phone] Cologuard - Sent Out Lab Social History Tobacco Use Types Packs/Day Years [...] place to sleep or slept in a care home (including now)? No 01/27/2022 Depression Answer Date Recor ded PHQ-9 Total Score (max 27) 5 12/02 Education Answer Date Recorded What is the highest level of school you have completed or the highest degree you have received? 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 [address] [facility] [place] [phone] documented as of this encounter Visit Diagnoses Not on filedocumented in this encounter Additional Health Concerns Assessment Noted Time PHQ-9 Depression Total Score: 5 12/03/19 25 10:43 AM CDT documented as of this encounter Care Teams Copy Camera Operator Relationship Specialty Start Date End Date Ilene Canales MPAS, P.A.-C. [address] [facility] [place] [phone] PCP - General 08/28/22 documented as of this encounter
--- OUTSIDE RECORDS SUMMARY | 2025-02-10 21:48 | XMS_ITS | Clinical Summary ---
Author Organization [facility] Address [address] [place] [address] Care Team Providers Care [employer] Head Former Name Role Phone Ilene Canales P.A.-C. Primary Care Pro vider Source Comments Patient records contain information from all sites at [facility]. For routine questions regarding patient records, call [phone] during business hours, M-F 8:00 AM - 5:00 PM Central Time. Record requests for emergency care only can be directed to [phone] at any time.[facility] Allergies No known active allergies Medications * This document contains information received from the source organization and may not represent a complete record from that organization. ketoconazole (NIZORAL) 2 % shampoo APPLY TOPICALLY TWICE A WEEK. APPLY TO DAMP SKIN, LATHER, LEAVE ON 5 MINUTES AND RINSE 120 mL 10/20/19 24 Active lisinopriL (PRINIVIL,ZES TRIL) 40 mg tablet Take 1 tablet (40 mg total) by mouth daily. 90 tablet 3 02/02/20 24 Active atorvastatin (LIPITOR) 40 mg tablet take one tablet by mouth every day 90 tablet 3 02/08/20 24 Active DME CPAPIndicatio ns:Obstructiv e Sleep Apnea Adult DME Order 1 each 02/22/20 24 Active tamsulosin (Flomax) 0.4 mg 24 hr capsule TAKE ONE CAPSULE BY MOUTH ONCE DAILY. 90 capsule 3 05/02/20 24 Active metroNIDAZOLE (MetroCream) 0.75 % cream APPLY 1 APPLICATION TOPICALLY DAILY. 45 g 2 05/31/20 24 025 Active pantoprazole (Protonix) 40 mg EC tablet Take 1 tablet (40 mg total) by mouth daily as needed for heartburn. 12/03/19 25 Active meloxicam (Mobic) 15 mg tablet TAKE 1 TABLET BY MOUTH ONCE DAILY NEEDED FOR PAIN OR MODERATE PAIN OR SCORE 4-6 OF 10 90 tablet 1 5 8:14 AM CDT 01/19/20 25 Active metFORMIN XR (Glucophage-X R) 500 mg 24 hr tablet TAKE TWO TABLETS(1000MG ) BY MOUTH DAILY WITH BREAKFAST 180 tablet 3 5 8:14 AM CDT 01/19/20 25 Active hydroCHLOROth iazide (HydroDiuril) 25 mg tablet TAKE 1 TABLET (25 MG TOTAL) BY MOUTH DAILY. 90 tablet 3 5 8:13 AM T 01/19/20 25 Active dextroampheta mine-amphetam ine (AdderalL) 30 mg tabletIndicat ions:Narcolep sy (HCC) Take 1 tablet (30 mg total) by mouth 3 (three) times a day for 30 days. 90 tablet 5 9:05 AM CDT 01/26/20 25 025 Active sertraline (Zoloft) 100 mg tablet Take 1 tablet (100 mg total) by mouth daily. 90 tablet 5 10:18 AM T 02/02/20 25 Active hydrocortison e-acetic acid (Acetasol HC) 1-2 % otic drops Administer 4 drops into the left ear 4 (four) times a day for 7 days. 10 mL 5 10:24 AM CDT 02/02/20 25 025 Active sildenafiL (Viagra) 100 mg tablet Take 1 tablet (100 mg total) by mouth daily as needed for erectile dysfunction. 20 tablet 5 10:21 AM CDT 02/02/20 25 Active meloxicam (Mobic) 15 mg tablet TAKE 1 TABLET BY MOUTH ONCE DAILY NEEDED FOR PAIN OR MODERATE PAIN OR SCORE 4-6 OF 10 90 tablet 1 05/02/20 24 025 Discontinued mirtazapine (Remeron) 15 mg tablet Take 1 tablet (15 mg total) by mouth at bedtime as needed (Insomnia). 12/03/19 25 025 Discontinued FLUoxetine (PROzac) 60 mg tablet Take 1 tablet (60 mg total) by mouth daily. 90 tablet 1 5 10:20 AM CDT 12/03/19 25 025 Discontinued sildenafiL (Viagra) 100 mg tablet Take 1 tablet (100 mg total) by mouth daily as needed for erectile dysfunction. 6 tablet 5 10:20 AM CDT 12/03/19 25 025 Discontinued(Re order) metFORMIN XR (Glucophage-X R) 500 mg 24 hr tablet Take 2 tablets (1,000 mg total) by mouth daily with morning meal. 180 tablet 3 12/06/19 25 025 Discontinued hydroCHLOROth iazide (HydroDiuril) 25 mg tablet Take 1 tablet (25 mg total) by mouth daily. 90 tablet 3 12/06/19 25 025 Discontinued dextroampheta mine-amphetam ine (AdderalL) 30 mg tabletIndicat ions:Narcolep sy (HCC) Take 1 tablet (30 mg total) by mouth 3 (three) times a day. 90 tablet 12/31/19 25 025 Discontinued(Re order) Active Problems Problem Noted Date Diagnosed Date Anxiety Generalized Disorder 02/01/2025 Dysfunction Erectile 12/02/2024 Rosacea 11/11/2023 Pain Low Back Unspecified 01/09/2023 Pain Big Great Toe Left 11/12/2022 Overview (11/12/2022): Added automatically from request for surgery [id number] History Of Falling 01/30/2022 Herniated Disc Lumbar 06/18/2021 Diabetes Mellitus Type 2 Hyperglycemia 1 Sciatica Right 04/19/2019 Overview (11/24/2022): Mar 2019: trigger point injection right low back. ~ 05/24/2019: L5-S1 TF epidural steroid injection by Dr. Tobar. ~ June 2019: L4-L5 TF epidural steroid injection by Dr. Tobar. Tear Rotator Cuff Complete Non Trauma Left 11/24 Primary Osteoarthritis Knee Left 10/11/2018 Gastroesophageal Reflux Disease 12/15/2017 Narcolepsy 08/24/2017 Overview (11/11/2023): He needs to establish care with Sleep Medicine for continued prescription of stimulants. Tobacco Use 01/01/2016 Attention Deficit Disorder Combined Type 016 Depression Major Recurrent Moderate 12/12/2015 Benign Prostatic Hyperplasia Without Obstruction 11/22/2015 Portal Vein Thrombosis 01/13/2015 Benign paroxysmal positional vertigo 01/08/2015 Hypertension Essential Primary 05/22/2014 Apnea Sleep Obstructive 05/22/2014 Overview (11/11/2023): Home sleep apnea test completed February 2023 with evidence of moderate YA. Patient needs to follow up with Sleep Medicine as discussed. Hyperlipidemia 01/21/2013 Dysthymia 09/04/2011 Overview (01/13/2017): Depression with anxiety (dysthymic) Alcoholism Personal History Overview (02/02/2024): In review of chart, he has a history of heavy alcohol use around early . Reported rare use of alcohol at clinic visit Sep 2022. 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 Depression Major Recurrent Moderate (HCC) (Primary Dx); Narcolepsy (HCC); Dysfunction Erectile; Pain Ear Left; History Of Falling 02/01/2025 8:30 AM CDT Office Visit Department of Orthopedic Surgery in [address] [phone] Melva Caceres P.A.-C., P.A. Primary Osteoarthritis Knee Left (Primary Dx) 01/25/2025 Clinical Communication [facility] in [place], [place] [address] [place] [phone] Naren Wolfe M.D. Med Refill 01/18/2025 Clinical Communication Department of Orthopedic Surgery in [place], [place] [address] [place] [address] Melva Caceres P.A.-C., P.A. 01/13/2025 Refill Department of Community [facility] Medicine in [address] [phone] Ilene Canales MPAS, P.A.-C. Med Refill 12/29/2024 Clinical Communication [facility] in [place], [place] [address] [place] [phone] Kris Amos M.D. Med Refill 12/28/2024 8:45 AM CDT Procedure visit Department of Orthopedic Surgery in [address] [phone] Melva Caceres P.A.-C., P.A. Primary Osteoarthritis Knee Left (Primary Dx) 12/28/2024 CPAP Download Remote Patient Monitoring [facility] [address] [address] [place] [address] [facility] 12/21/2024 8:30 AM CDT Comprehensive Visit Department of Orthopedic Surgery in [address] [phone] Caceres, Melva J, P.A.-C., P.A. Pain Knee Left (Primary Dx); Primary Osteoarthritis Knee Left 12/21/2024 Results Follow-Up Department of Community Internal Medicine in [address] [phone] Ilene Canales MPAS, P.A.-C. Cologuard - Sent Out Lab 12/05/2024 Results Follow-Up Department of [facility] in [address] [phone] Ilene Canales MPAS, P.A.-C. Albumin, Random, Urine 12/05/2024 Results Follow-Up Department of Community [facility] Medicine in [address] [phone] Ilene Canales MPAS, P.A.-C. Hemoglobin A1c, Basic Metabolic Panel, PSA (Prostate-Specific Antigen) Screen 12/03/2024 Orders Only Department of Community Internal Medicine in [address] [phone] Ilene Canales MPAS, P.A.-C. Screening Cancer Colon 12/02/2024 11:59 AM CDT - 12/02/2024 11:59 PM CDT Hospital Encounter Department of Radiology in [address] [phone] Ilene Canales MPAS, P.A.-C. Pain Knee Left Discharge Disposition: Home or Self Care 12/02/2024 11:00 AM CDT Office Visit Department of [facility] in [address] [phone] Ilene Canales MPAS, P.A.-C. Rosacea (Primary Dx); Diabetes Mellitus Type 2 Hyperglycemia (HCC); Hypertension Essential Primary; Narcolepsy (HCC); Apnea Sleep Obstructive; Anxiety; Depression Major Recurrent Moderate (HCC); Alcoholism Personal History (HCC); Gastroesophageal Reflux Disease; Lung Cancer Screening; Tobacco Use; Benign Prostatic Hyperplasia Without Obstruction; History Of Falling; Cheilitis Angular; Dysfunction Erectile; Pain Knee Left; General Medical Examination Adult; Screening Cancer Colon 12/02/2024 8:54 AM CDT - 12/02/2024 11:58 AM CDT Hospital Encounter Department of Laboratory Medicine in [address] [phone] Ilene Canales MPAS, P.A.-C. Diabetes Mellitus Type 2 Hyperglycemia (HCC) Discharge Disposition: Home or Self Care 12/02/2024 8:53 AM CDT Hospital Encounter Department of Laboratory Medicine in [address] [phone] Ilene Canales MPAS, P.A.-C. Diabetes Mellitus Type 2 Hyperglycemia (HCC); Hypertension Essential Primary; Screening Examination Prostate Cancer Discharge Disposition: Home or Self Care 12/02/2024 Results Follow-Up Department of Community Internal Medicine in [address] [phone] Ilene Canales MPAS, P.A.-C. DX Knee Left with Flexion and Patella 4 Views 11/29/2024 Clinical Communication [facility] in [place], [place] [address] [place] [address] Naren Wolfe M.D. Med Refill 11/27/2024 CPAP Download Remote Patient Monitoring [facility] [address] [place] [address] [facility] 11/22/2024 Refill Department of Community Internal Medicine in [address] [phone] Ilene Canales MPAS, P.A.-C. Med Refill from Last 3 Months Immunizations Immunization Administration Dates Next Due HepB (discontinued) adolesce nt/high risk infant 01/07/2002,07/21/2001,05/24/2001 HepB, Unspecified 01/07/2002,07/21/2001,05/24/20 01 Influenza Split 05/24/2015 Influenza TIV (IM) 05/27/2012, 0,06/06/2008,2006,06/23/2006,08/12/2004,08/21/2003 Influenza Whole 05/11/2015 Influenza high dose QV(65 ye ars or older) (PF) 10/03/2022,06/19/2021,09/11/2020 Influenza, Injectable, Quadrivalent 05/31/2019,1 ,06/03/2016 Influenza, Seasonal, Injectable 05/27/20 12,05/31/2010,06/06/2008,2006,06/23/2006,08/12/2004,08/21/2003 Influenza, Unspecified 05/27/2017,2015,06/10/2015,2014,07/05/2013,06/09/2011 PCV13 06/19/2015 PPSV23 12/06/2021 Pneumococcal, Unspecified 05/24/2015 SARS-COV-2 (COVID-19) - MODE RNA (12 YEARS AND OLDER) Fall Seasonal 12/02/2024 SARS-COV-2 (COVID-19) - PFIZ ER (Discontinued)(12 years or older) 12/04/2020,11/06/2020 SARS-COV-2 (COVID-19) - PFIZ ER TS(Discontinued)(12 years or older) 12/06/2021 Td (Adult), adsorbed 01/25/2005 Td, (Adult) Unspecified 01/25/2005 Tdap 08/08/2013 influenza trivalent high dos e (HD)(PF) 05/24/2015 influenza trivalent vaccine (6 months and older)(PF) 06/05/2018 influenza vaccine quad (FLUZONE/FLUARIX) (6 months and older)(PF) 05/31/2019,06/05/2018 Family History Medical History Relation Name Comments Migraines Daughter Sushila Esophageal cancer Father Hypertension Mother 1 Kingsley Jourdan Osteoporosis Mother 1 Kingsley Jourdan Parkinsons disease Mother 1 Kingsley Kerby Hypertension Mother 2 Osteoporosis Mother 2 Parkinsons disease Mother 2 Osteoporosis Mother 3 kingsley jourdan Heart attack Sister jeimy foster Osteoporosis Sister jeimy foster Relation Name Status Comments Daughter Sushila Alive Father Other Mother 1 Kingsley Spangler (Age 76) Mother 2 Alive Mother 3 kingsley jourdan Alive Sister jeimy foster Alive Social History Tobacco Use Types Packs/Day Years Used Date Smoking Tobacco: Some Days Cigarettes 0.5 55.1 Started: [birth year]/26/1969 Smokeless Tobacco: Never Alcohol Use Standard Drinks/Week Comments Not Currently 1 (1 standard drink = 0.6 oz pur e alcohol) [facility] Utilities Answer Date Recorded In the past 12 months has th e electric, gas, oil, or water company [...] your living situation today? I have a [facility] place to live 02/01/2025 Education Answer Date Recorded What is the highest level of school you have completed or the highest degree you have received? 12th grade 02/04/2021 Sex and Gender Information Value Date Recorded Sex Assigned at Male 02/01/2025 2:59 PM CDT Legal Sex Male 5:36 AM TECHNICAL SUPPORT INTERN Gender Identity Male 02/01/2025 2:59 PM CDT Sexual Orientation Straight 08/19/2017 10 :49 AM TECHNICAL SUPPORT INTERN Occupation Industry Job Start Date Job End Date retired Not on file Not on file Not on file Last Filed Vital Signs Vital Sign Reading Time Taken Comments Blood Pressure 120/78 02/01/2025 3:[address] rage Pulse 96 02/01/2025 3:11 PM CDT Temperature 35.8 C (96.4 F) 02/01/2025 3:11 PM CDT Respiratory Rate 20 02/01/2025 3:11 PM CDT Oxygen Saturation 92% 11/24/2022 1:45 PM CDT Inhaled Oxygen Concentration - - Weight 85.8 kg (189 lb 2.5 oz) 02/01/2025 3:11 P M CDT Height 173 cm (5' 8.11) 12/02/2024 10:37 AM CDT Body Mass Index 28.67 12/02/2024 10:37 AM CDT Plan of Treatment Upcoming Encounters Date Type Department Care Team (Late st Contact Info) Description 03/07/2025 10:00 AM CDT Office Visit Department of Community Internal Medicine in [place], [place] [address] [place] [address] Ilene Canales, NICKS, P.A.-C. [address] [place] [address] Health Maintenance Due Date Last Done Comments CT Colonography 1955 Dilated Eye Exam 1955 FIT 1955 Hepatitis C Screening 1955 Visit: Medicare Annual Wellness 1955 Zoster Vaccines (1 of 2) 2005 Lung Cancer Screening 11/21/2015 11/20/2014 , 11/20/2014, 10/06/2013, Additional history exists Diabetic Office Visit with Foot Exam 12/07/2018 12/07/2017 DTaP,Tdap,and Td Vaccines (2 - Td or Tdap) 08/08/2023 08/08/2013, 01/25/2005, 01/25/2005 Influenza Vaccine (#1) 2024 , 06/19/2021, 09/11/2020, Additional history exists Colonoscopy 01/01/2025 01/01/2015 Tobacco Cessation counseling 02/01/2025 02/02/2024 COVID-19 Vaccine ( season) 2025 12/02/2024, 12/06/2021, 12/04/2020, Additional history exists Depression Monitoring (PHQ-9) 06/03/2025 02/01/2025 Hemoglobin A1C 06/03/2025 12/02/2024, 09/24, 10/03/2022, Additional history exists Creatinine Level (Kidney Function Test) 12/02/2025 12/02/2024, 12/07/2023, 02/18/2023, Additional history exists Potassium Level 12/02/2025 12/02/2024, 01/23, 10/03/2022, Additional history exists Sodium Level 12/02/2025 12/02/2024, 01/23, 10/03/2022, Additional history exists Urine Albumin 12/02/2025 12/02/2024, 11/22, 11/16/2020, Additional history exists Visit: Chronic Disease, age 18+ 12/02/2025 12/02/2024 Office Visit for Blood Pressure Check / Re-check 02/01/2026 02/01/2025 Cologuard 12/16/2027 12/15/2024 Colorectal Cancer Screening 12/16/2027 Lipid (Cholesterol) Screening 10/08/2028 10/08/2023, 12/03/2021, 11/16/2020, Additional history exists Hepatitis B Vaccines Completed 01/07/2002, 01/07/2002, 07/21/2001, Additional history exists Pneumococcal vaccine (50+ years) Completed 12/06/2021, 06/19/2015, 05/24/2015 Abdominal Aortic Aneurysm (AAA) Screen Completed 12/08/2023, 12/08/2023, 12/08/2023, Additional history exists Fall Risk Screen (Annual) Completed 12/02/2024 Depression Monitoring (PHQ-9 for quality tracking) Completed 02/01/2025, 02/01/2025 IPV Vaccines Aged Out No longer eligi ble based on patient's age to complete this topic Medical Devices Implanted Type Area Final Inspector And Tester Device Identifier Shelf Expiration Date Model / Serial / Lot Tendon Semitendinosus Frozen - Kitchen [id number] Implanted:Qty: 1 on 05/23/2014 Bone or Tissue Other/Legacy - See Implant Description [employer] Description:Device Manufactu rer - [employer]. Body Location - Other. tendon/ligament/muscle reconstruction. Device Status Text - [id number]. Scrw Qck St Srt Pthrd 4.0x32 - [id number] Implanted:Qty: 1 on 11/24/2022 at [facility] Ta/Gonda Hardware e.g. pins/screw s/rods Left: Foot Arthrex [id number] -32PTS / / Scrw Qck St Srt Pthrd 4.0x36 - [id number] Implanted:Qty: 1 on 11/24/2022 at [facility] Ta/[employer]onda Hardware e.g. pins/screw s/rods Left: Foot Arthrex [id number] -36PTS / / Procedures Procedure Name Priority Date/Time Associated Diagnosis Comments [place] ARTHCS ASP/INJ MJR JT WO US Routine 02/01/2025 8:30 AM CDT Primary Osteoarthritis Knee Left ORS NON-GUIDED ASPIRATION/INJECT ION Routine 12/28/2024 8:45 AM CDT Primary Osteoarthritis Knee Left NH ARTHCS ASP/INJ MJR JT WO US Routine 12/28/2024 8:45 AM CDT Primary Osteoarthritis Knee Left NH ARTHCS ASP/INJ MJR JT WO US Routine 12/21/2024 8:30 AM CDT Primary Osteoarthritis Knee Left COLOGUARD Routine 12/15/2024 6:50 AM CDT Screening Cancer Colon DX KNEE LEFT FLEXION AND PATELLA 4 VIEWS RAD - Routine (most inpatients and all outpatients) 12/02/2024 12:19 PM CDT Pain Knee Left PROSTATE-SPECIFIC AG (PSA) SCRN, S Routine 12/02/2024 9:14 AM CDT Screening Examination Prostate Cancer BASIC METABOLIC PANEL, S/P Routine 12/02/2024 9:14 AM CDT Hypertension Essential Primary HEMOGLOBIN A1C, B Routine 12/02/2024 9:1 4 AM CDT Diabetes Mellitus Type 2 Hyperglycemia (HCC) ALBUMIN, RANDOM, U Routine 12/02/2024 9:11 AM CDT Diabetes Mellitus Type 2 Hyperglycemia (HCC) CT ABDOMEN PELVIS WITH IV CONTRAST RAD - Routine (most inpatients and all outpatients) 12/08/2023 9:10 AM CDT Hernia Inguinal Bilateral Hernia Femoral Bilateral Hernia Umbilical LIPID PANEL, S Routine 10/08/2023 11:00 AM TECHNICAL SUPPORT INTERN Diabetes Mellitus Type 2 Hyperglycemia (HCC) CT CHEST WITHOUT IV CONTRAST Routine 11/20/2014 10:45 AM CDT from Last 3 Months or Most Recently Relevant to Health Maintenance Results * NH ARTHCS ASP/INJ MJR JT WO US (02/01/2025 [...] ice area as needed for comfort Melva Caceres P.A.-C., P.A. PROCEDURE/MINOR SURGICAL ORDERABLES Final Result Performing Organization Address City/State/[facility] Co de Phone Number MMODAL NA * NH ARTHCS ASP/INJ MJR JT WO US (12/28/2024 8:45 AM CDT) Narrative MMODAL - 12/28/2024 8:45 AM CDT Melva Caceres P.A.-C., P.A. 12/28/2024 9:03 AM Knee site- L knee [...] needed for comfort us Melva Caceres P.A.-C., P.A. PROCEDURE/MINOR SURGICAL ORDERABLES Final Result Performing Organization Address City/State/[facility] Co de Phone Number MMODAL NA * NH ARTHCS ASP/INJ MJR JT WO US (12/21/2024 8:30 AM CDT) Narrative MMODAL - 12/21/2024 8:30 AM CDT Melva Caceres P.A.-C., P.A. 12/21/2024 9:36 AM Knee site- L knee joint : [...] needed for comfort us Melva Caceres P.A.-C., P.A. PROCEDURE/MINOR SURGICAL ORDERABLES Final Result MMODAL NA * Cologuard - Sent Out Lab (12/15/2024 6:50 AM CDT) Result Negative Negative 12/21/2024 12:48 AM CDT EXLI Comment: The Cologuard (TM) test was performed on this specimen. NEGATIVE TEST RESULT. A negative Cologuard result indicates a low likelihood that a colorectal cancer (CRC) or advanced adenoma (adenomatous polyps with more advanced pre-malignant features) is present. The chance that a person with a negative Cologuard test has a colorectal cancer is less than 1 in 1500 (negative predictive value >99.9%) or has an advanced adenoma is less than 5.3% (negative predictive value 94.7%). These data are based on a prospective cross-sectional study of 10,000 individuals at average risk for colorectal cancer who were screened with both Cologuard and colonoscopy. (Bj Kuhn al, N Engl J Med 2014;370(14):1030-7888) The normal value (reference range) for this assay is negative. COLOGUARD RE-SCREENING RECOMMENDATION: Periodic colorectal cancer screening is an important part of preventive healthcare for asymptomatic individuals at average risk for colorectal cancer. Following a negative Cologuard result, the [place] [employer] and U.S. Multi-Society Task Force screening guidelines recommend a Cologuard re-screening interval of 3 years. References: [place] [employer] Guideline for Colorectal Cancer Screening: https://www.cancer.org/cancer/zmwrt-rbsebf-ckuqwx/detection- diagnosis-staging/acs-recommendations.html.; Pino DK, Fuad CR, Ciera AltamiranoK, Colorectal Cancer Screening: Recommendations for Physicians and Patients from the U.S. Multi-Society Task Force on Colorectal Cancer Screening , Am J Gastroenterology 2017; 112:0484-9282. TEST DESCRIPTION: Composite algorithmic analysis of stool DNA-biomarkers with hemoglobin immunoassay. Quantitative values of individual biomarkers are not reportable and are not associated with individual biomarker result reference ranges. Cologuard is intended for colorectal cancer screening of adults of either sex, 45 years or older, who are at average-risk for colorectal cancer (CRC). Cologuard has been approved for use by the U.S. FDA. The performance of Cologuard was established in a cross sectional study of average-risk adults aged 50-84. Cologuard performance in patients ages 45 to 49 years was estimated by sub-group analysis of near-age groups. Colonoscopies performed for a positive result may find as the most clinically significant lesion: colorectal cancer [4.0%], advanced adenoma (including sessile serrated polyps greater than or equal to 1cm diameter) [20%] or non- advanced adenoma [31%]; or no colorectal neoplasia [45%]. These estimates are derived from a prospective cross-sectional screening study of 10,000 individuals at average risk for colorectal cancer who were screened with both Cologuard and colonoscopy. (Bj Kuhn al, N Engl J Med 2014;370(14):7966-5800.) Cologuard may produce a false negative or false positive result (no colorectal cancer or precancerous polyp present at colonoscopy follow up). A negative Cologuard test result does not guarantee the absence of CRC or advanced adenoma (pre-cancer). The current Cologuard screening interval is every 3 years. ([place] [employer] and U.S. Multi-Society Task Force). Cologuard performance data in a 10,000 patient pivotal study using colonoscopy as the reference method can be accessed at the following location: www.[employer].com/results. Additional description of the Cologuard test process, warnings and precautions can be found at www.[employer].com. Stool (Stool) 12/15/2024 6:5 0 AM CDT 12/16/2024 9:37 AM CDT Ilene ZHAO, P.A.-C. LAB BODY FLUIDS A ND STOOLS ORDERABLES Final Result [employer] [address] [place] [address] EXLI [employer] [address] [facility], [address] [id number] * DX Knee Left with Flexion and Patella 4 Views (12/02/2024 12:19 PM CDT) Anatomical Region Laterality Modality Lower Extremity, Knee, Muscu loskeletal RST LOS, Musculoskeletal ARZ LOS, Muskuloskeletal FLA LOS Left Digit al Radiography Impressions 12/02/2024 1:07 PM CDT Worsened tricompartmental degenerative changes, particularly severe in the medial compartment. Trace joint effusion. Chondrocalcinosis bilaterally. Mild right knee degenerative changes. Stable probable osteochondroma of the distal medial femur since 10/11/2018. Vascular calcifications. Narrative 12/02/2024 1:07 PM CDT EXAM: DX KNEE LEFT FLEXION AND PATELLA 4 VIEWS Procedure Note Jagdish Mendez M.D. - 12/02/2024 EXAM: DX KNEE LEFT FLEXION AND PATELLA 4 VIEWS IMPRESSION: Worsened tricompartmental degenerative changes, particularly severe in themedial compartment. Trace joint effusion. Chondrocalcinosis bilaterally.Mild right knee degenerative changes. Stable probable osteochondroma ofthe distal medial femur since 10/11/2018. Vascular calcifications. Ilene ZHAO, P.A.-C. IMG DIAGNOSTIC IM AGING PROCEDURES Final Result * PSA (Prostate-Specific Antigen) Screen (12/02/2024 9:14 AM CDT) Prostate-Specific Ag 1.1 <=4.5 ng/mL 12/02/2024 1:20 PM CDT OWAT Comment: ----ADDITIONAL INFORMATION---- The testing method is an electrochemiluminescence assay manufactured by [employer] and performed on the Modular or Tona system. Values obtained with different assay methods or kits may be different and cannot be used interchangeably. Test results cannot be interpreted as absolute evidence for the presence or absence of malignant disease. Blood (Blood, Venous) 12/02/2024 9:14 AM CDT 12/02/2024 12:41 PM CDT Ilene ZHAO, P.A.-C. LAB BLOOD ADD-ON Final Result Performing Organization Address City/[facility] Co de Phone Number [facility] [address] [place] [address], [facility] OWAT [facility] [place] [address], [place] [address] * (ABNORMAL) Hemoglobin A1c (12/02/2024 9:14 AM CDT) Hemoglobin A1c, B 7.1(H) 4.2 - 5.6 % 12/02/2024 1:44 PM CDT OWAT Comment: Hemoglobin A1c values greater than or equal to 6.5 percent are diagnostic for diabetes mellitus. Diagnosis should be confirmed by repeat testing. In diabetic patients, HbA1c goals should be discussed with healthcare provider. Blood (Blood, Venous) 12/02/2024 9:14 AM CDT 12/02/2024 12:40 PM CDT Ilene ZHAO, P.A.-C. LAB BLOOD ADD-ON Final Result Performing Organization Address City/[facility]/ZIP Co de Phone Number [facility] [address] [place] [address], [place] OWAT [facility] [place] [address], [place] [address] * (ABNORMAL) Basic Metabolic Panel (12/02/2024 9:14 AM CDT) Potassium, P 3.9 3.6 - 5.2 mmol/L 12/02/2024 1:25 PM CDT OWAT Sodium, P 138 135 - 145 mmol/L 12/02/2024 1:25 PM CDT OWAT Chloride, P 98 98 - 107 mmol/L 12/02/2024 1:25 PM CDT OWAT Bicarbonate, P 29 22 - 29 mmol/L 12/02/2024 1:25 PM CDT OWAT Anion Gap, P 11 7 - 15 12/02/2024 1:25 PM CDT OWAT BUN (Blood Urea Nitrogen), P 17 8 - 24 mg/dL 12/02/2024 1:25 PM CDT OWAT Creatinine 0.85 0.74 - 1.35 mg/dL 12/02/2024 1:25 PM CDT OWAT Estimated GFR (eGFR) >90 >=60 mL/min/BSA 12/02/2024 1:25 PM CDT OWAT Comment: Estimated GFR calculated using the 2020 CKD_EPI creatinine equation. Calcium, Total, P 9.8 8.8 - 10.2 mg/dL 12/02/2024 1:25 PM CDT OWAT Glucose, P 165(H) 70 - 140 mg/dL 12/02/2024 1:25 PM CDT OWAT Blood (Blood, Venous) 12/02/2024 9:14 AM CDT 12/02/2024 12:41 PM CDT us Ilene ZHAO, P.A.-C. LAB BLOOD ADD-ON Final Result [facility] [address] [place] [address], [facility] OWAT [facility] [place] [address] [place] [address] * (ABNORMAL) Albumin, Random, Urine (12/02/2024 9:11 AM CDT) Microalbumin 248.0 mg/L 12/02/2024 1:15 PM CDT OWAT Creatinine 92 mg/dL 12/02/2024 1:15 PM CDT OWAT Albumin/Creatinin e Ratio 270(H) <17 mg/g 12/02/2024 1:15 PM CDT OWAT Urine (Urine, Midstream) 12/02/2024 9:11 AM CDT 12/02/2024 12:40 PM CDT us Jannette CruzA.Delio. LAB URINE ORDERAB LES Final Result [facility] [address] [place] [address], [facility] OWAT [facility] [place] [address] [place] [address] * CT Abdomen Pelvis with IV Contrast (12/08/2023 9:10 AM CDT) Anatomical Region Laterality Modality Abdomen, Pelvis, Abdominal R ST LOS, Abdominal ARZ LOS, Abdominal FLA LOS N/A Computed Tomography 12/08/2023 9:10 AM CDT Impressions 12/08/2023 9:18 AM CDT 1. Small fat-containing umbilical hernia. 2. Small fat-containing left inguinal hernia. 3. Cholelithiasis without cholecystitis. 4. Nonobstructing bilateral renal stones. 5. Tortuous vessels in the spermatic cords bilaterally. Consider scrotal ultrasound to evaluate for varicocele if clinically indicated. Narrative 12/08/2023 9:18 AM CDT EXAM: CT ABDOMEN PELVIS WITH IV CONTRAST COMPARISON: 01/21/2022 FINDINGS: Cholelithiasis without evidence of cholecystitis. Liver, spleen, adrenal glands are normal. No hydronephrosis. Unchanged bilateral nonobstructing renal calculi measuring up to 4 mm on the left and 3 mm on the right. Hypoattenuating renal lesions are noted bilaterally, largest along the medial left kidney is higher in attenuation than a simple cyst and was better evaluated on prior abdominal MRI. Tortuous vessels noted in the spermatic cords bilaterally. Portal, splenic and superior mesenteric veins are patent. Calcified atherosclerosis throughout the aorta and major branches. No lymphadenopathy. Fat-containing umbilical hernia with the hernia sac measuring 3.1 cm transverse in the neck 1.5 cm transverse. Small fat-containing left inguinal hernia. No dilated loops of small or large bowel. Normal appendix. No free peritoneal fluid or gas. Colonic diverticulosis without diverticulitis. Bone windows demonstrate unchanged chronic L1 burst fracture with mild osseous retropulsion. Moderate multilevel spondylosis. Procedure Note Jimenez Russell M.D. - 12/08/2023 EXAM: CT ABDOMEN PELVIS WITH IV CONTRAST COMPARISON: 01/21/2022 FINDINGS: Cholelithiasis without evidence of cholecystitis. Liver, spleen, adrenalglands are normal. No hydronephrosis. Unchanged bilateral nonobstructingrenal calculi measuring up to 4 mm on the left and 3 mm on the right.Hypoattenuating renal lesions are noted bilaterally, largest along the medial left kidney is higher inattenuation than a simple cyst and was better evaluated on prior abdominalMRI. Tortuous vessels noted in the spermatic cords bilaterally. Portal, splenic and superior mesenteric veins are patent. Calcifiedatherosclerosis throughout the aorta and major branches. Nolymphadenopathy. Fat-containing umbilical hernia with the hernia sac measuring 3.1 cmtransverse in the neck 1.5 cm transverse. Small fat-containing leftinguinal hernia. No dilated loops of small or large bowel. Normal appendix. No freeperitoneal fluid or gas. Colonic diverticulosis without diverticulitis. Bone windows demonstrate unchanged chronic L1 burst fracture with mildosseous retropulsion. Moderate multilevel spondylosis. IMPRESSION: 1. Small fat-containing umbilical hernia. 2. Small fat-containing left inguinal hernia. 3. Cholelithiasis without cholecystitis. 4. Nonobstructing bilateral renal stones. 5. Tortuous vessels in the spermatic cords bilaterally. Consider scrotalultrasound to evaluate for varicocele if clinically indicated. Rhea Matthews P.A.-C. [facility] CT PROCEDURES Final Result * (ABNORMAL) Lipid Panel (10/08/2023 11:00 AM TECHNICAL SUPPORT INTERN) Triglycerides 226(H) mg/dL 10/08/2023 1:56 PM TECHNICAL SUPPORT INTERN OWAT Comment: ----REFERENCE VALUE---- Normal: <150 mg/dL Borderline High: 150-199 mg/dL High: 200-499 mg/dL Very High: > or =500 mg/dL Cholesterol, Total 147 mg/dL 2023 1:56 PM TECHNICAL SUPPORT INTERN OWAT Comment: ----REFERENCE VALUE---- Desirable: < 200 mg/dL Borderline High: 200 - 239 mg/dL High: > or = 240 mg/dL Cholesterol, LDL, Calculated 72 mg/dL 10/08/2023 1:56 PM TECHNICAL SUPPORT INTERN OWAT Comment: ----REFERENCE VALUE---- Desirable: <100 mg/dL Above Desirable: 100-129 mg/dL Borderline High: 130-159 mg/dL High: 160-189 mg/dL Very High: >=190 mg/dL ----ADDITIONAL INFORMATION---- LDL cholesterol calculated using the Finney/NIH equation. Cholesterol, HDL 38(L) >=40 mg/dL 10/08/19 1:56 PM TECHNICAL SUPPORT INTERN OWAT Cholesterol, Non-HDL, Calculated 109 mg/dL 10/08/2023 1:56 PM TECHNICAL SUPPORT INTERN OWAT Comment: ----REFERENCE VALUE---- Desirable: <130 mg/dL Above Desirable: 130-159 mg/dL Borderline High: 160-189 mg/dL High: 190-219 mg/dL Very High: > or =220 mg/dL Fasting (8 HR or more) No 10/08/2023 1:13 PM TECHNICAL SUPPORT INTERN OWAT Blood (Blood, Venous) 10/08/2023 11:00 AM TECHNICAL SUPPORT INTERN 10/08/2023 1:13 PM TECHNICAL SUPPORT INTERN us Ilene ZHAO, P.A.-C. LAB BLOOD ADD-ON Final Result [facility] [address] [place] [address], [facility] OWAT [facility] [place] [address] [place] [address] * CT Chest without IV Contrast (11/20/2014 10:45 AM CDT) Anatomical Region Laterality Modality Chest N/A Computed Tomogra phy 11/20/2014 10:4 5 AM CDT Impressions 11/20/2014 10:28 AM CDT Stable chest. Old lumbar compression. Narrative 11/20/2014 10:28 AM CDT EXAM: CT Chest w/o contrast INDICATION: follow up pulmonary nodules COMPARISON: October 06, [address] FINDINGS: Thyroid:No obvious change. Today's study is without IV contrast. Axillary Nodes:None enlarged Aorta:Normal size Great Vessels:Normal size Heart:Normal size. Calcified left anterior descending artery Pericardium:No effusion Pulmonary Arteries:No IV contrast Mediastinal Nodes:Not enlarged Lyndsey:Negative Bronchi:Clear Pleura:Noncalcified right nodule series 3 image 124 in the left series 6 image 73 without substantial change from a year ago. Pleural Fluid:No Nodule:2 small pleural-based nodules are not calcified Lungs:Clear other than the 2 pleural-based nodules. Spine:Old compression of an upper lumbar vertebral body. Pneumothorax:No Esophagus:No hernia Liver:Homogeneous Spleen:Homogeneous Pancreas:No stranding Kidneys:3 nonobstructing stones are seen within the left kidney. Upper Abdominal nodes:Head enlarged Ascites:No Procedure Note Rik Lopez M.D. / Gloria Euceda M.D. - 12/31/2016 EXAM: CT Chest w/o contrast INDICATION: follow up pulmonary nodules COMPARISON: October 06, [address] FINDINGS: Thyroid:No obvious change. Today's study is without IV contrast. Axillary Nodes:None enlarged Aorta:Normal size Great Vessels:Normal size Heart:Normal size. Calcified left anterior descending artery Pericardium:No effusion Pulmonary Arteries:No IV contrast Mediastinal Nodes:Not enlarged Lyndsey:Negative Bronchi:Clear Pleura:Noncalcified right nodule series 3 image 124 in the left series 6 image 73 without substantial change from a year ago. Pleural Fluid:No Nodule:2 small pleural-based nodules are not calcified Lungs:Clear other than the 2 pleural-based nodules. Spine:Old compression of an upper lumbar vertebral body. Pneumothorax:No Esophagus:No hernia Liver:Homogeneous Spleen:Homogeneous Pancreas:No stranding Kidneys:3 nonobstructing stones are seen within the left kidney. Upper Abdominal nodes:Head enlarged Ascites:No IMPRESSION: Stable chest. Old lumbar compression. Freida Deutsch RKevinTKevin(R)(CT), R.TKevin(R) IMG CT PROCEDU RES Edited Result - Final from Last 3 Months or Most Recently Relevant to Health Maintenance Insurance MEDICARE Advance Directives For more information, please contact: [phone] Documents on File Type Date Recorded Patient Hair Spring Winder Expl anation Advance Directives 04/05/2018 4:19 PM POLS T Advance Directives 04/05/2018 4:19 PM POA * Full Code (Latest Code Status on File) Date Activated Date Inactivated Comments 06/18/2021 3:11 PM 06/19/2021 10:12 PM Question Answer Comments Full Code: Not Discussed Due to: Patient not available * Full Code Date Activated Date Inactivated Comments 06/18/2021 6:37 AM 06/18/2021 3:11 PM Question Answer Comments Full Code: Not Discussed Due to: Patient not available Healthcare Agents on File Name Relationship Healthcare Agent [facility] p Communication Sushila Spangler Daughter Health Care Agent Care Teams [employer] Head Former Relationship Specialty Start Date End Date Ilene Canales MPAS, P.A.-C. [address] [facility] [phone] PCP - General 08/28/22
--- OUTSIDE RECORDS SUMMARY | 2025-02-10 21:48 | XMS_ITS | Encounter Summary ---
Author Organization [facility] Address [address] [place] [address] Care Team Providers Care Block Inspector Name Role Phone Ilene Canales P.A.-C. Primary Care Pro vider Encounter Details Date Type Department Care Team (Late st Contact Info) Description 01/18/2025 Clinical Communication Department of Orthopedic Surgery in [place], [place] [address] [phone] Melva Caceres P.A.-C., P.A. [address] [phone] Social History Tobacco Use Types Packs/Day Years [...] place to sleep or slept in a half-way (including now)? No 01/27/2022 Depression Answer Date Recor ded PHQ-9 Total Score (max 27) 5 12/02 Education Answer Date Recorded What is the highest level of school you have completed or the highest degree you have received? 12th grade 02/04/2021 Sex and Gender Information Value Date Recorded Sex Assigned at Male 02/01/2025 2:59 PM CDT Legal Sex Male 5:36 AM RESOLUTION REP Gender Identity Male 02/01/2025 2:59 PM CDT Sexual Orientation Straight 08/19/2017 10 :49 AM RESOLUTION REP Occupation Industry Job Start Date Job End Date retired Not on file Not on file Not on file documented as of this encounter Miscellaneous Notes * Telephone Encounter - Melva Caceres P.A.-C., P.A. - 01/19/2025 7:01 AM CDT Yes he can come in next week, ok to double book * Telephone Encounter - Evelyne Rubin R.N. - 01/18/2025 12:36 PM CDT Called patient regarding missed appointment with Melva Caceres P.A.-C. today. Patient states hedidn't realize the appointment was scheduled for today. Patient would like to complete the left knee Synvisc series. Informed patient a message will be sent to Melva for appointment options. documented in this encounter Plan of Treatment Upcoming Encounters Date Type Department Care Team (Late st Contact Info) Description 03/07/2025 10:00 AM CDT Office Visit Department of Community Internal Medicine in [place], [place] [address] [place] [address] Ilene Canales MPAS, P.A.-C. [address] [place] [address] documented as of this encounter Visit Diagnoses Not on filedocumented in this encounter Additional Health Concerns Assessment Noted Time PHQ-9 Depression Total Score: 5 12/03/19 25 10:43 AM CDT documented as of this encounter Care Teams Block Inspector Relationship Specialty Start Date End Date Ilene Canales MPAS, P.A.-C. [address] [place] [address] PCP - General 08/28/22 documented as of this encounter
--- OUTSIDE RECORDS SUMMARY | 2025-02-10 21:48 | XMS_ITS | Encounter Summary ---
Author Organization [facility] Address [address] [place] [address] Care Team Providers Care Gum Worker Name Role Phone Ilene Canales P.A.-C. Primary Care Pro vider Encounter Details Date Type Department Care Team (Late st Contact Info) Description 10/27/2024 CPAP Download Remote Patient Monitoring [facility] [address] [place] [address] [facility], Provider, Social History Tobacco Use Types Packs/Day Years Used Date Smoking Tobacco: Every Day Cigarettes 0.5 55.1 Started: [birth year]/26/1969 Smokeless Tobacco: Never Alcohol Use Standard Drinks/Week Comments Yes 1 (1 standard drink = 0.6 oz [...] the money to buy more. Sometimes true 06 /01/2022 Within the past 12 months, t he [...] place to sleep or slept in a chcf (including now)? No 01/27/2022 Depression Answer Date Recor ded PHQ-9 Total Score (max 27) 5 12/02 Education Answer Date Recorded What is the highest level of school you have completed or the highest degree you have received? 12th grade 02/04/2021 Sex and Gender Information Value Date Recorded Sex Assigned at Male 02/01/2025 2:59 PM CDT Legal Sex Male 5:36 AM CONCRETE BOOM OPERATOR Gender Identity Male 02/01/2025 2:59 PM CDT Sexual Orientation Straight 08/19/2017 10 :49 AM CONCRETE BOOM OPERATOR Occupation Industry Job Start Date Job End Date retired Not on file Not on file Not on file documented as of this encounter Plan of Treatment Upcoming Encounters Date Type Department Care Team (Late st Contact Info) Description 03/07/2025 10:00 AM CDT Office Visit Department of Community Internal Medicine in [place], [place] [address] [place] [address] Ilene Canales MPAS, P.A.-C. [address] [place] [phone] documented as of this encounter Visit Diagnoses Not on filedocumented in this encounter Additional Health Concerns Assessment Noted Time PHQ-9 Depression Total Score: 5 02/02/20 24 8:44 AM CDT documented as of this encounter Care Teams Gum Worker Relationship Specialty Start Date End Date Ilene Canales MPAS, P.A.-C. [address] [place], [place] [address]joy M[place]OCELYN COOM[place] [phone] PCP - General 08/28/22 documented as of this encounter
--- OUTSIDE RECORDS SUMMARY | 2025-02-10 21:48 | XMS_ITS | Encounter Summary ---
Author Organization [facility] Address [address] [place] [address] Care Team Providers Care Saw Feeder Name Role Phone Ilene Canales P.A.-C. Primary Care Pro vider Reason for Referral * Outpatient (Routine) - Authorized Specialty Diagnoses / Procedures Referred By Contac t Referred To Contact [facility] Ilene Canales MPAS, P.A.-CKevin [address] [place] [address] Phone: tel: fax: [facility] Region Referral ID Status Reason Start Date Expiration Date V isits Requested Visits Authorized [id number] Authorized 12/05/2024 06/06/2026 1 1 * Outpatient (Routine) - Authorized Specialty Diagnoses / Procedures Referred By Contac t Referred To Contact [facility] Ilene Canales MPAS, P.AKevin-CKevin [address] [place] [address] Phone: tel: fax: [facility] Region Referral ID Status Reason Start Date Expiration Date V isits Requested Visits Authorized [id number] Authorized 12/05/2024 06/06/2026 1 1 Encounter Details Date Type Department Care Team (Late st Contact Info) Description 12/05/2024 Results Follow-Up Department of Community Internal Medicine in [place], [place] [address] [facility] [place] [phone] Ilene Canales MPAS, P.A.-C. [address] [facility] JOCELYN Menendez [phone] Hemoglobin A1c, Basic Metabolic Panel, PSA (Prostate-Specific Antigen) Screen Social History Tobacco Use Types Packs/Day Years [...] place to sleep or slept in a skilled nursing (including now)? No 01/27/2022 Depression Answer Date Recor ded PHQ-9 Total Score (max 27) 5 12/02 Education Answer Date Recorded What is the highest level of school you have completed or the highest degree you have received? 12th grade 02/04/2021 Sex and Gender Information Value Date Recorded Sex Assigned at Male 02/01/2025 2:59 PM CDT Legal Sex Male 5:36 AM LICENSING REGISTRATION EXAMINER Gender Identity Male 02/01/2025 2:59 PM CDT Sexual Orientation Straight 08/19/2017 10 :49 AM LICENSING REGISTRATION EXAMINER Occupation Industry Job Start Date Job End Date retired Not on file Not on file Not on file documented as of this encounter Plan of Treatment Upcoming Encounters Date Type Department Care Team (Late st Contact Info) Description 03/07/2025 10:00 AM CDT Office Visit Department of Community [facility] in [place], [place] [address] [place] [address] Ilene Canales MPAS, P.A.-C. [address] [place] [address] Scheduled Orders Name Type Priority Associated Diagnoses Orde r Schedule Hemoglobin A1c Lab Routine Diabetes Mellitus Type 2 Hyperglycemia (HCC) Expected: 06/06/2025 (Approximate), Expires: 03/06/2026 Basic Metabolic Panel Lab Routine Diabetes Mellitus Type 2 Hyperglycemia (HCC) Expected: 12/05/2025, Expires: 03/06/2026 PSA (Prostate-Specific Antigen) Screen Lab Routine Screening Examination Prostate Cancer Expected: 12/05/2025 (Approximate), Expires: 03/06/2026 Hemoglobin A1c Lab Routine Diabetes Mellitus Type 2 Hyperglycemia (HCC) Expected: 12/05/2025, Expires: 03/06/2026 Lipid Panel Lab Routine Diabetes Mellitus Type 2 Hyperglycemia (HCC) Expected: 12/05/2025 (Approximate), Expires: 03/06/2026 Albumin, Random, Urine Lab Routine Diabetes Mellitus Type 2 Hyperglycemia (HCC) Expected: 12/05/2025, Expires: 03/06/2026 Scheduled Referrals Name Type Priority Associated Diagnoses Orde r Schedule [facility] office visit (clinic) Outpatient Referral Routine Expected: 06/06/2025, Expires: 03/06/2026 [facility] office visit (clinic) Outpatient Referral Routine Expected: 12/05/2025 (Approximate), Expires: 03/06/2026 documented as of this encounter Visit Diagnoses Diagnosis Diabetes Mellitus Type 2 Hyperglycemia (HCC)- Primary Screening Examination Prostate Cancer documented in this encounter Additional Health Concerns Assessment Noted Time PHQ-9 Depression Total Score: 5 12/03/19 25 10:43 AM CDT documented as of this encounter Care Teams Saw Feeder Relationship Specialty Start Date End Date Ilnee Canales MPAS, P.A.-C. [address] [place] [phone] PCP - General 08/28/22 documented as of this encounter
--- OUTSIDE RECORDS SUMMARY | 2025-02-10 21:48 | XMS_ITS | Encounter Summary ---
Author Organization [facility] Address [address] [place] [address] Care Team Providers Care Lining Caser Name Role Phone Ilene Canales P.A.-C. Primary Care Pro vider Reason for Visit * Reason Comments Med Refill Encounter Details Date Type Department Care Team (Late st Contact Info) Description 01/13/2025 Refill Department of Community Internal Medicine in [place], [place] [address] [place] [phone] Ilene Canales MPAS PKevinA.-CKevin [address] [place] [address] Med Refill Social History Tobacco Use Types [...] place to sleep or slept in a residential (including now)? No 01/27/2022 Depression Answer Date Recor ded PHQ-9 Total Score (max 27) 5 12/02 Education Answer Date Recorded What is the highest level of school you have completed or the highest degree you have received? 12th grade 02/04/2021 Sex and Gender Information Value Date Recorded Sex Assigned at Male 02/01/2025 2:59 PM CDT Legal Sex Male 5:36 AM SEARCH ENGINE MARKETING SPECIALIST Gender Identity Male 02/01/2025 2:59 PM CDT Sexual Orientation Straight 08/19/2017 10 :49 AM SEARCH ENGINE MARKETING SPECIALIST Occupation Industry Job Start Date Job End Date retired Not on file Not on file Not on file documented as of this encounter Plan of Treatment Upcoming Encounters Date Type Department Care Team (Late st Contact Info) Description 03/07/2025 10:00 AM CDT Office Visit Department of Community Internal Medicine in [address] [phone] Ilene Canales MPAS, P.A.-C. [address] [facility] [place] [address] documented as of this encounter Visit Diagnoses Not on filedocumented in this encounter Additional Health Concerns Assessment Noted Time PHQ-9 Depression Total Score: 5 12/03/19 25 10:43 AM CDT documented as of this encounter Care Teams Lining Caser Relationship Specialty Start Date End Date Ilene Canales MPAS, P.A.-C. [address] [facility] [place] [address] PCP - General 08/28/22 documented as of this encounter
--- OUTSIDE RECORDS SUMMARY | 2025-02-10 21:48 | XMS_ITS | Encounter Summary ---
Author Organization [facility] Address [address] [place] [address] Care Team Providers Care Logging Superintendent Name Role Phone Ilene Canales P.A.-C. Primary Care Pro vider Encounter Details Date Type Department Care Team (Late st Contact Info) Description 12/28/2024 CPAP Download Remote Patient Monitoring [facility] [address] [place] [address] [facility], Provider, Social History Tobacco Use Types Packs/Day [...] place to sleep or slept in a fpc (including now)? No 01/27/2022 Depression Answer Date Recor ded PHQ-9 Total Score (max 27) 5 12/02 Education Answer Date Recorded What is the highest level of school you have completed or the highest degree you have received? 12th grade 02/04/2021 Sex and Gender Information Value Date Recorded Sex Assigned at Male 02/01/2025 2:59 PM CDT Legal Sex Male 5:36 AM SUPERVISOR BLOOD Gender Identity Male 02/01/2025 2:59 PM CDT Sexual Orientation Straight 08/19/2017 10 :49 AM SUPERVISOR BLOOD Occupation Industry Job Start Date Job End Date retired Not on file Not on file Not on file documented as of this encounter Plan of Treatment Upcoming Encounters Date Type Department Care Team (Late st Contact Info) Description 03/07/2025 10:00 AM CDT Office Visit Department of Community Internal Medicine in [place], [place] [address] [place] [address] Ilene Canales MPAS, P.A.-C. 300 [place] [phone] documented as of this encounter Visit Diagnoses Not on filedocumented in this encounter Additional Health Concerns Assessment Noted Time PHQ-9 Depression Total Score: 5 12/03/19 25 10:43 AM CDT documented as of this encounter Care Teams Logging Superintendent Relationship Specialty Start Date End Date Ilene Canales MPAS, P.A.-C. 300 [facility] [place] [phone] PCP - General 08/28/22 documented as of this encounter
--- OUTSIDE RECORDS SUMMARY | 2025-02-10 21:48 | XMS_ITS | Encounter Summary ---
Author Organization [facility] Address [address] [place] [address] Care Team Providers Care Process Control Manager Name Role Phone Ilene Canales P.A.-C. Primary Care Pro vider Encounter Details Date Type Department Care Team (Late st Contact Info) Description 11/27/2024 CPAP Download Remote Patient Monitoring [facility] [address] [place] [address] [facility], Provider, Social History Tobacco Use Types Packs/Day [...] place to sleep or slept in a snf (including now)? No 01/27/2022 Depression Answer Date Recor ded PHQ-9 Total Score (max 27) 5 12/02 Education Answer Date Recorded What is the highest level of school you have completed or the highest degree you have received? 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 300 [place] [phone] documented as of this encounter Visit Diagnoses Not on filedocumented in this encounter Additional Health Concerns Assessment Noted Time PHQ-9 Depression Total Score: 5 02/02/20 24 8:44 AM CDT documented as of this encounter Care Teams Process Control Manager Relationship Specialty Start Date End Date Ilene Canales MPAS, P.A.-C. [address] [place], [place] [address] [place] [phone] PCP - General 08/28/22 documented as of this encounter
--- OUTSIDE RECORDS SUMMARY | 2025-02-10 21:48 | XMS_ITS | Encounter Summary ---
Author Organization [facility] Address [address] [place] [address] Care Team Providers Care Svp Business Development Name Role Phone Ilene Canales P.AKevin-C. Primary Care Pro vider Encounter Details Date Type Department Care Team (Late st Contact Info) Description 12/05/2024 Results Follow-Up Department of Community Internal Medicine in [place], [place] 300 [facility] [place] [phone] Ilene Canales MPAS P.A.-C. 300 [place] [phone] Albumin, Random, Urine Social History Tobacco Use Types Packs/Day Years [...] place to sleep or slept in a [place] [facility] (including now)? No 01/27/2022 Depression Answer Date Recor ded PHQ-9 Total Score (max 27) 5 12/02 Education Answer Date Recorded What is the highest level of school you have completed or the highest degree you have received? 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 300 [facility] [place] [address] documented as of this encounter Visit Diagnoses Not on filedocumented in this encounter Additional Health Concerns Assessment Noted Time PHQ-9 Depression Total Score: 5 12/03/19 25 10:43 AM CDT documented as of this encounter Care Teams Svp Business Development Relationship Specialty Start Date End Date Ilene Canales MPAS, P.A.-C. 300 [facility] [place] [address] PCP - General 08/28/22 documented as of this encounter
--- OUTSIDE RECORDS SUMMARY | 2025-02-10 21:48 | XMS_ITS | Clinical Summary ---
Author Organization [facility] Address [address] [place] [address] Care Team Providers Care Hvac Manager Name Role Phone No Primary/Referring, Phy Primary Care Provider Unavailable Source Comments You are receiving this document as you are listed as the primary care provider,follow-up provider, or the patient has been referred to you for consultation.This is in compliance with the Medicare and[facility] EHR Incentive Program,which states Providers who transition their patient to another setting of careor provider of care or refers their patient to another provider of care shouldprovide summary care record for each transition of care or referral. [facility] Allergies No known active allergies Active Problems Problem Noted Date Diagnosed Date History of alcoholism 08/21/2024 Overview (08/21/2024): In review of chart, he has a history of heavy alcohol use around early . Reported rare use of alcohol at clinic visit Sep 2022. Rosacea 11/11/2023 Low back pain, unspecified 01/09/2023 Pain of great toe 11/12/2022 Overview (08/21/2024): Added automatically from request for surgery [id number] History of falling 01/30/2022 Herniated lumbar intervertebral disc 06/18/2021 Lumbar radiculopathy 05/16/2021 Overview (08/21/2024): Added automatically from request for surgery [id number] Diabetes mellitus 01/24/2021 Type 2 diabetes mellitus with hyperglycemia 10/2020 Back pain with right-sided sciatica 04/19/2019 Overview (08/21/2024): Mar 2019: trigger point injection right low back. ~ 05/24/2019: L5-S1 TF epidural steroid injection by Dr. Tobar. ~ June 2019: L4-L5 TF epidural steroid injection by Dr. Tobar. Sciatica, right side 04/19/2019 Overview (08/21/2024): Mar 2019: trigger point injection right low back. ~ 05/24/2019: L5-S1 TF epidural steroid injection by Dr. Tobar. ~ June 2019: L4-L5 TF epidural steroid injection by Dr. Tobar. Complete rotator cuff tear o r rupture of left shoulder, not specified as traumatic 11/24/2018 Primary osteoarthritis of left knee 10/11/2018 Overview (08/21/2024): December 2017 hyaluronic acid 3 shot series by orthopedics and in [facility]. July 2019: Cortisone injection by Dr. Dayron Murillo. Hyperglycemia 12/15/2017 Gastroesophageal reflux disease 12/15/2017 Alcohol use disorder 01/01/2016 MRSA (methicillin resistant staph aureus) cultur e positive 01/01/2016 Nicotine dependence 01/01/2016 Patient nonadherence 01/01/2016 Tobacco use disorder 01/01/2016 Hypercholesteremia 12/27/2015 Attention deficit hyperactiv ity disorder (ADHD), combined type 12/15/2015 Mild episode of recurrent major depressive disor bharati 12/13/2015 Depression 12/12/2015 Moderate episode of recurrent major depressive d isorder 12/12/2015 Benign prostatic hyperplasia with urinary obstru ction 11/22/2015 Anxiety 08/22/2015 Impingement syndrome of shoulder region 07/02/20 15 Shoulder pain 03/13/2015 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 Patient needs to follow up with Sleep Medicine as discussed. Primary hypertension 05/22/2014 Dysthymic disorder 04/08/2007 Narcolepsy without cataplexy 04/08/2007 Overview (08/21/2024): He needs to establish care with Sleep Medicine for continued prescription of stimulants. 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 Pulse 106 08/21/2024 9:46 PM BRUSH MAKER Temperature 36.7 C (98.1 F) 08/21/2024 9:46 PM BRUSH MAKER Respiratory Rate 20 08/21/2024 9:46 PM BRUSH MAKER Oxygen Saturation 94% 08/21/2024 9:46 PM BRUSH MAKER Inhaled Oxygen Concentration - - Weight - - Height - - Body Mass Index - - Plan of Treatment Health Maintenance Due Date Last Done Comments Colon Cancer Screening Plan Due 1955 Diabetes: Creatinine 1955 Diabetes: Eye Exam 1955 Diabetes: Foot Exam 1955 Diabetes: Lipid Panel 1955 Diabetes: Urine Microalbumin 1955 Hep C Screening (Preventive Services) 1955 Adult Preventive Visit 1973 Zoster/Shingles Vaccine (1 of 2) 2005 DTaP/Tdap/Td Vaccine (3 - Tdap) 08/08/2023 08/08/2013, 08/08/2013, 01/25/2005 Diabetes: HGBA1C 04/07/2024 10/08/2023, , 10/03/2022 COVID-19 Vaccine (3 - 2023- season) 2024 12/04/2020, 11/06/2020 Influenza Vaccine (Season Ended) 2025 10/03/2022, 06/19/2021, 09/11/2020, Additional history exists RSV Vaccine (1 - 1-dose 75+ series) 2030 Pneumococcal Vaccine 50+ Yrs Completed , 06/19/2015, 05/24/2015 HepA Vaccine Aged Out No longer eligi ble based on patient's age to complete this topic HepB Vaccine Aged Out No longer eligi ble based on patient's age to complete this topic Hib Vaccine Aged Out No longer eligi ble based on patient's age to complete this topic IPV (Polio) Vaccine Aged Out No longe r eligible based on patient's age to complete this topic MCV4 Vaccine Aged Out No longer eligi ble based on patient's age to complete this topic Meningococcal B Vaccine Aged Out No l onger eligible based on patient's age to complete this topic Care Teams Hvac Manager Relationship Specialty Start Date End Date No Primary/Referring, Candida PCP - General 08/21/24
--- OUTSIDE RECORDS SUMMARY | 2025-02-10 21:48 | XMS_ITS | Encounter Summary ---
Author Organization [facility] Address [address] [place] [address] Care Team Providers Care Patrol Man Name Role Phone Ilene Canales P.A.-C. Primary Care Pro vider Reason for Visit * Reason Onset Date Comments Med Refill 12/29/2024 Encounter Details Date Type Department Care Team (Late st Contact Info) Description 12/29/2024 Clinical Communication [facility] in [place], [place] [address] [place] [phone] Kris Amos M.D. 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 - 12/29/2024 4:13 PM CDT Prescription Renewal Request Medication: dextroamphetamine-amphetamine (AdderalL) 30 mg tablet Indication: narcolepsy 2 (G47.419) HISTORY OF PRESENT ILLNESS Date of last visit: 02/17/24, Provider: Greg Wolfe M.D. Next visit: ordered but not yet scheduled; due 02/16/25 , can be virtual or in person Prescription request matches current plan of care. Date of last prescription renewal: 11/29/24 ASSESSMENT/PLAN Prescription pended for prescriber review. * Telephone Encounter - Melecio Mcintyre - 12/29/2024 4:07 PM CDT Patient is calling to request refill on dextroamphetamine-amphetamine (AdderalL) 30 mg tablet. Please send to: Pharmacy at [facility] [address] [place] [address] Last visit was on 02-17-[address] Wolfe. Thank you! Melecio documented in this encounter Plan of Treatment Upcoming Encounters Date Type Department Care Team (Late st Contact Info) Description 03/07/2025 10:00 AM CDT Office Visit Department of Community Internal Medicine in [place], [place] [address] [place] [phone] Ilene Canales MPAS, P.A.-C. 300 [place] [phone] documented as of this encounter Visit Diagnoses Diagnosis Narcolepsy (HCC) documented in this encounter Additional Health Concerns Assessment Noted Time PHQ-9 Depression Total Score: 5 12/03/19 25 10:43 AM CDT documented as of this encounter Care Teams Patrol Man Relationship Specialty Start Date End Date Ilene Canales MPAS, P.A.-C. [address] [place] [phone] PCP - General 08/28/22 documented as of this encounter
--- OUTSIDE RECORDS SUMMARY | 2025-02-10 21:48 | XMS_ITS | Encounter Summary ---
Author Organization [facility] Address [address] [place] [address] Care Team Providers Care Corporate Legal Manager Name Role Phone Ilene Canales P.A.-C. Primary Care Pro vider Encounter Details Date Type Department Care Team (Late st Contact Info) Description 12/02/2024 Results Follow-Up Department of Community Internal Medicine in [place], [place] 300 [facility] [place] [phone] Ilene Canales MPAS, P.A.-C. 300 [place] [address] DX Knee Left with Flexion and Patella 4 Views Social History Tobacco Use Types Packs/Day Years [...] place to sleep or slept in a [facility] (including now)? No 01/27/2022 Depression Answer Date Recor ded PHQ-9 Total Score (max 27) 5 12/02 Education Answer Date Recorded What is the highest level of school you have completed or the highest degree you have received? 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 300 [facility] [place] [address] documented as of this encounter Visit Diagnoses Not on filedocumented in this encounter Additional Health Concerns Assessment Noted Time PHQ-9 Depression Total Score: 5 12/03/19 25 10:43 AM CDT documented as of this encounter Care Teams Corporate Legal Manager Relationship Specialty Start Date End Date Ilene Canales MPAS, P.A.-C. 300 [facility] [place] [address] PCP - General 08/28/22 documented as of this encounter
--- OUTSIDE RECORDS SUMMARY | 2025-02-10 21:48 | XMS_ITS | Clinical Summary ---
Author Organization [facility] Address [address] [address] Phone Care Team Providers Care Director Content Marketing Name Role Phone Elsewhere, Pcp Primary Care Provider Unavailabl e Allergies No known active allergies Medications * This document contains information received from the source organization and may not represent a complete record from that organization. atenolol (TENORMIN) 100 MG tablet Take 1 Tab by mouth one time a day. 31 Tab 03/20/2012 Active atorvaSTATin (LIPITOR) 20 MG tablet Take 1 Tab by mouth one time a day. 31 Tab 11 03/20/2012 Active amphetamine-dex troamphetamine XR (ADDERALL XR) 20 MG 24 hour capsule Take 1 Cap by mouth one time a day. Should be given by noon. Swallow whole or open and sprinkle contents on food. 03/20/2012 Active hydrochlorothia zide 25 MG tablet Take 1 Tab by mouth one time a day. 03/20/2012 Active cyclobenzaprine (FLEXERIL) 10 MG tablet Take 0.5 Tabs by mouth three times a day. 30 Tab 0 03/20/2012 Active naproxen (NAPROSYN) 500 MG tablet Take 1 Tab by mouth two times a day. Take with food. 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 Gender Identity Not on file Sexual Orientation Not on file Obstetrics History Last Filed Vital Signs Vital Sign Reading Time Taken Comments Blood Pressure - - Pulse 104 03/20/2012 12:13 PM CDT Temperature 36.9 C (98.5 F) 03/20/2012 12:13 PM CDT Respiratory Rate 18 03/20/2012 12:13 PM CDT Oxygen Saturation 95% 03/20/2012 12:13 PM CDT Inhaled Oxygen Concentration - - Weight 76.9 kg (169 lb 9.6 oz) 03/20/2012 12:13 PM CDT Height - - Body Mass Index - - Plan of Treatment Health Maintenance Due Date Last Done Comments CT Colonography 1955 Cologuard 1955 Colonoscopy 1955 Colorectal Cancer Screening 1955 FIT/FOBT 1955 Sigmoidoscopy 1955 PERTUSSIS (Standing Order) 1974 TETANUS (Standing Order) 1974 Pneumococcal Vaccine: 50+ yr s (Standing Order) (1 of 1 - PCV) 2005 Shingrix (Zoster recombinant ) vaccine (Standing Order) (1 of 2) 2005 COVID-19 Vaccine ( - 2023-2 5 season) 2024 RSV Vaccination (60+ yrs) (Abrysvo/Arexvy) (1 - 1-dose 75+ series) 2030 HPV Vaccine (Standing Order) Aged Out No longer eligible based on patient's age to complete this topic Hepatitis B Vaccine (Standin g Order) Aged Out No longer eligible b ased on patient's age to complete this topic Insurance [facility] Care Teams Director Content Marketing Relationship Specialty Start Date End Date Elsewhere, Pcp PCP - General 03/20/12
[2025-02-10 21:50] LABS: Basophils Percent Auto 0.6 % (0.0-3.0); Eosinophils Percent Auto 6.3 % (0.0-7.0); Hemoglobin* 14.9 gm/dL (13.5-17.5); Immature Granulocytes Pct Auto 0.5 %; Lymphocytes Percent Auto 10.8 % (20-44); Mean Corpuscular HGB Conc 34 gm/dL (32-36); Mean Corpuscular Hemoglobin 31 pg (26-34); Mean Corpuscular Volume 91 fL (80-100); Monocytes Percent Auto 7.5 % (0.0-11.0); Neutrophils Percent Auto 74.3 % (42.0-72.0); Platelet Count* 305 K/uL (140-440); RDW Coefficient of Variation % 13.6 % (11.5-15.5); Red Blood Count 4.82 m/uL (4.30-5.90); White Blood Count* 13.04 K/uL (4.50-11.00)
[2025-02-10 21:51] LABS: Slide Review Reflex No
[2025-02-10 22:05] LABS: Albumin* 4.3 g/dL (3.3-5.0); Chloride* 104 mmol/L (96-114); Potassium* 3.4 mmol/L (3.6-5.1); Sodium* 139 mmol/L (135-149)
[2025-02-10 22:07] LABS: Prothrombin Time 12.9 Seconds
[2025-02-10 22:08] LABS: Alanine Aminotransferase* 28 U/L (4-50); Aspartate Amino Transferase* 23 U/L (12-35); Blood Urea Nitrogen* 30 mg/dL (7-30); Creatinine* 2.4 mg/dL (0.5-1.5); Est. Creatinine Clearance* 26.78; Estimated Glomerular Filt Rate 28 ml/min; Partial Thromboplastin Time* 29 Seconds (23-33)
[2025-02-10 22:09] LABS: Alkaline Phosphatase* 79 U/L (40-150); Anion Gap 13 mEq/L (7-15); Bilirubin Total* 0.6 mg/dL (0.1-1.5); Calcium* 9.7 mg/dL (8.4-10.6); Carbon Dioxide* 22 mmol/L (20-32); Glucose* 192 mg/dL (60-115)
[2025-02-10 22:11] LABS: D Dimer Quantitative* 0.47 ug/ml (0.00-0.50)
[2025-02-10 22:12] LABS: C Reactive Protein* < 0.5 mg/dL (0.5-1.0)
[2025-02-10] MEDS: 0.9 % SODIUM CHLORIDE 1000 ml 1,000 ML 500 ML IV ×2 (22:13→23:13)
[2025-02-10 22:18] LABS: Creatinine, Point-of-Care* 2.6 mg/dl (0.6-1.3); Troponin, Point-of-Care* 0.01 ng/ml (0.01-0.04)
[2025-02-10 22:21] LABS: Troponin I* 0.02 ng/mL (0.01-0.04)
[2025-02-10 22:22] LABS: NT Pro B Type NatriureticPept* 278 pg/mL (See Note)
[2025-02-10 22:26] LABS: Procalcitonin* 0.17 ng/mL (<0.50)
[2025-02-10 22:52] LABS: PCR FLU A Negative PCR FLU A (Negative); PCR FLU B Negative PCR FLU B (Negative); PCR RSV Negative PCR RSV (Negative); SARS PCR* Negative SARS-CoV-2 (Negative)
[2025-02-10 23:35] LABS: Appearance Urine Slightly Cloudy (Clear); Bilirubin Urine 1+ (Negative); Blood Urine 3+ (Negative); Color Urine Yellow (Yellow); Glucose Urine Negative (Negative); Ketones Urine 1+ (Negative); Leukocyte Esterase Urine 1+ (Negative); Nitrite Urine Negative (Negative); Protein Urine 3+ (Negative); Specific Gravity Urine >= 1.030 (1.000-1.030); Urobilinogen Urine 0.2 (0.2-1.0); pH Urine 5.5 (5.0-8.5)
[2025-02-10 23:42] LABS: Troponin, Point-of-Care* 0.02 ng/ml (0.01-0.04)
[2025-02-11] VITALS (16 sets, daily range): BP systolic 101–203; BP diastolic 49–113; PULSE 69–87; RESP 10–26; TEMP 36.1–37.2; O2SAT 92–96
[2025-02-11 01:28] LABS: Lactate* 1.2 mmol/L (0.5-1.9)
[2025-02-11] MEDS: cefTRIAXone 2 GM in 0.9 % SODIUM CHLORIDE Mini-bag 100 ML IVPB ×2 (01:38→21:41)
[2025-02-11 01:42] LABS: Amphetamine Screen Urine POSITIVE (Negative); Barbiturate Screen Urine Negative (Negative); Benzodiazepines Screen Urine POSITIVE (Negative); Cannabinoid Screen Urine Negative (Negative); Cocaine Screen Urine Negative (Negative); Methadone Screen Urine Negative (Negative); Methamphetamines Screen Urine POSITIVE (Negative); Opiate Screen Urine Negative (Negative); Oxycodone Screen Urine Negative (Negative); Phencyclidine Screen Urine Negative (Negative); Tricyclic Antidepressant Urine Negative (Negative)
[2025-02-11 01:51] LABS: Ethanol* < 0.01 % (0.01-0.03)
--- NOTE | 2025-02-11 02:14 | W.PM.THH&P_ITS ---
Telehealth- H&P: HPI History of Present Illness Time Seen by Provider: : Date Seen: 02/11/25 Chief complaint: SOB, Dizzy, Confusion Narrative: Hank Spangler is seen as an Interactive Telehealth visit. Hank Spangler is a 70 year old male who is He is known to have hypertension. 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 He has a daughter who lives in town. But he lives on his own independently. He also still drives he is known to have hypertension for which she takes hydrochlorothiazide. He also has history of narcolepsy so he is on dexamphetamine or amphetamine. He says that he has been feeling weak in the last 24 hours. He was having a lot of pain in his muscles, his groin, his hips his abdomen, his back and his neck. His daughter said he seemed to be confused and not himself also on 02/10/2025. When he got to the emergency room his blood pressure was 82/67 becoming 79/57. ER doctor worked him up. Gave him 3 L of normal saline. Blood pressure then went up to 101/49. While in the ER CT scan of the abdomen pelvis was done which showed bilateral nonobstructing kidney stones. No hydronephrosis. Urine analysis was suspicious for acute UTI. 2 blood cultures were done. Urine analysis with reflex microscopy and culture was done. Rest of laboratory test showed elevated creatinine of 2.4. WBC 13,000. ABG was normal. Potassium was 3.4. Lactate was 2.8. Repeat lactic acid is pending. Liver function test normal. CRP normal. Calcitonin normal. COVID-19 influenza and RSV test was negative. Troponin was done twice 2 hours apart and both were negative. Chest x-ray negative. On talking to him now he is awake and alert he says he still feels weak but is more alert though. He was very worried that he had been more weak earlier and was really not sure why that was. I told him that most likely he has a acute UTI. And is now receiving antibiotics. Also because of the hot weather in the state of dehydration taking the diuretics for his high blood pressure may have contributed to his dehydration. CODE STATUS full code ROS: No fever, no chills, no runny nose, no postnasal drip, no cough, no phlegm, no shortness of breath at rest or with exertion, no epistaxis, no bleeding gums, no hematemesis, no hemoptysis, no cough, no phlegm, no sore throat, no chest pain at rest or with exertion, no shortness of breath at rest or with exertion, no abdominal pain, no blood in the stool, no blood in the urine, no skin rash, no skin ulcers. Past medical history: 1. Hypertension 2. Hyperlipidemia 3. History of narcolepsy for which she is on dextroamphetamine or amphetamine Past surgical history was reviewed Family medical history was reviewed Personal social history: Patient is single. He lives alone. His daughter lives in town. 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 He smokes 1 pack/day. He does not drink alcoholic beverages. She is independent of all ADLs and still drives. CODE STATUS full code [facility] Medical History (Updated 02/11/25 @ 03:58 by Esha Ingram MD) Acute hypotension ?I95.9 - Hypotension, unspecified (ICD-10) Social History What is your current living situation?: I presently have a place to live Problems where you live: no known problems Problems where you live details: n/a In the past 12 months, utilities in danger of being shut off: no In past 12 months, lack of transportation kept you from medical appts, meetings, work, or getting things needed for daily living: yes In the past 12 mos, have been you worried that your food would run out before you had money to buy more?: sometimes true In the past 12 mos, the food you bought just didn't last and you didn't have money to buy more?: sometimes true Smoking Status: Current every day smoker What tobacco products do you use: cigarettes Nicotine containing products detail: Started smoking when a teenager. Quit for 15 years, then started again How often do you have a drink containing alcohol: monthly or less AUDIT-C Alcohol total score: 1 Non-prescribed substance use: denies use How often does anyone, including family, friends and others, physically hurt you : never How often does anyone, including family, friends and others, insult or talk down to you: never How often does anyone, including family, friends and others, threaten you with harm: never How often does anyone, including family, friends and others, scream or curse at you: never Health Related Social Needs: food insecurity (Z59.41) and transportation insecurity (Z59.82) Meds Home Medications and Allergies Home Medications ?Medication ?Instructions ?Recorded ?Confirmed ?Type atorvastatin 40 mg tablet 40 mg PO DAILY 02/10/25/2 0 History dextroamphetamine-amphetamine 30 1 tab PO 3XD 02/10/25 02/10/25 History mg tablet hydrochlorothiazide 25 mg tablet 25 mg PO DAILY 02/10/25 History Allergies Allergy/AdvReac Type Severity Reaction Status Date / Time No Known Drug Allergies Allergy Verified 01/30/23 19:50 Exam Narrative Exam Narrative: Physical exam was performed via telemedicine. Nurses and staff helped me to examine and interviewed the patient. Vital signs were reviewed Head normocephalic atraumatic pupils 2 mm equal reactive to light, full EOMs normal upper and lower eyelids Neck supple no JVD no carotid bruit there is a soft palpable mass under the area of the chin on the right side. Because I am not at the bedside I will add this to my report so that the daytime physician can evaluate it. It was not tender while the nurse was palpating it. Lungs good inspiratory effort good air entry no rales no wheezes Heart distant heart sounds regular rate rhythm S1 and S2 is audible Abdomen flat soft hypoactive bowel sounds , abdomen was soft nontender when the nurse was palpating it. Lower extremities no leg edema. Decreased muscle mass. Const Vital Signs, click to edit/add: Vital Signs - 24 hr 02/10/25 21:17 02/10/25 21:24 02/10/25 21:27 Temperature 97.8 F Pulse Rate 91 Pulse Rate [Pulse Oximeter] 98 Respiratory Rate 20 22 Blood Pressure 79/57 L Blood Pressure [Right Upper Arm] 82/67 L Pulse Oximetry 96 95 94 Oxygen Delivery Method Room Air 02/10/25 21:36 02/10/25 22:06 02/10/25 22:16 Temperature Pulse Rate 83 80 Pulse Rate [Pulse Oximeter] Respiratory Rate 18 15 18 Blood Pressure 82/51 L 96/63 82/54 L Blood Pressure [Right Upper Arm] Pulse Oximetry 97 94 Oxygen Delivery Method 02/10/25 22:33 02/10/25 22:46 02/10/25 22:58 Temperature Pulse Rate 79 77 78 Pulse Rate [Pulse Oximeter] Respiratory Rate 22 19 18 Blood Pressure 91/49 L 86/41 L 97/53 L Blood Pressure [Right Upper Arm] Pulse Oximetry 95 93 95 Oxygen Delivery Method 02/10/25 23:01 02/10/25 23:17 02/10/25 23:31 Temperature Pulse Rate 76 76 74 Pulse Rate [Pulse Oximeter] Respiratory Rate 7 L 35 H 16 Blood Pressure 111/57 L 94/45 L 94/44 L Blood Pressure [Right Upper Arm] Pulse Oximetry 97 94 96 Oxygen Delivery Method 02/10/25 23:46 02/11/25 00:01 02/11/25 00:17 Temperature Pulse Rate 75 82 77 Pulse Rate [Pulse Oximeter] Respiratory Rate 16 17 26 H Blood Pressure 101/49 L 112/49 L 101/50 L Blood Pressure [Right Upper Arm] Pulse Oximetry 94 93 95 Oxygen Delivery Method 02/11/25 00:31 02/11/25 00:46 02/11/25 01:01 Temperature Pulse Rate 78 86 77 Pulse Rate [Pulse Oximeter] Respiratory Rate 18 25 H 10 L Blood Pressure 102/51 L 105/67 109/67 Blood Pressure [Right Upper Arm] Pulse Oximetry 96 94 95 Oxygen Delivery Method 02/11/25 01:01 Temperature Pulse Rate 77 Pulse Rate [Pulse Oximeter] Respiratory Rate 10 L Blood Pressure 109/67 Blood Pressure [Right Upper Arm] Pulse Oximetry 95 Oxygen Delivery Method Hospitalist - H&P: Result Labs Labs: Short CBC 02/10/25 Range/Units 21:40 WBC 13.04 H (4.50-11.00) K/uL Hgb 14.9 (13.5-17.5) gm/dL Hct 44.0 (37.0-53.0) % Plt Count 305 (140-440) K/uL BMP 02/10/25 21:40 Sodium 139 Potassium 3.4 L Chloride 104 Carbon Dioxide 22 BUN 30 Creatinine 2.4 H Glucose 192 H Calcium 9.7 Cardiac Enzymes 02/10/25 Range/Units 21:40 Troponin I 0.02 (0.01-0.04) ng/mL Liver Function 02/10/25 Range/Units 21:40 Total Bilirubin 0.6 (0.1-1.5) mg/dL AST 23 (12-35) U/L ALT 28 (4-50) U/L Alkaline Phosphatase 79 (40-150) U/L Albumin 4.3 (3.3-5.0) g/dL Urine 02/10/25 Range/Units 23:32 Urine Color Yellow (Yellow) Urine Appearance Slightly Cloudy A (Clear) Urine pH 5.5 (5.0-8.5) Ur Specific [place] >= 1.030 (1.000-1.030) Urine Protein 3+ A (Negative) Urine Glucose (UA) Negative (Negative) Assessment and Plan Assessment and plan (1) Severe sepsis: Problem comment: Criteria for severe sepsis WBC > 12,000/mm3 hypotension or low blood pressure suspected source of infection is acute uti he did receive 3 liter ns at ER and BP terra from 82/67 to 79/57 to 101/49 ---since DBP 49 is still low after 3 liters NS, then he has hypotension refractory to 3 liters NS----this is actually meeting criteria for SEPTIC SHOCK multiple organ dysfunction: Kidneys with TERE with Crea 2.4 Neuro with confusion prior to arriving at ED Lactic Acid elevated at 2.8 normal is ( 2 to 2.4 ) we did start him empirically on Rocephin 2 grams IV and I added a colloid to his IVF resuscitation : albumin 25 mg in 100 ml per bag x 2 bags Status: Acute (2) Acute kidney injury: Status: Acute (3) Encephalopathy: Status: Acute (4) Leukocytosis: Status: Acute (5) Acute UTI: Status: Acute (6) Hyperlipidemia: Status: Acute (7) Narcolepsy: Status: Acute Plan Hank SIRS Criteria ( >2 meets SIRS Criteria) Temp > 38 C ot 100.4 F Heart Rate > 90 98 bpm Respiratory rate >20 or PaCO2 <32 mmHg WBC > 12,000 13,0400 Sepsis Criteria ( SIRS + Source of infection ) Suspected or present source of infection acute uti Severe Sepsis Criteria ( Organ Dysfuction, Hypotension, or Hypoperfusion ) Lactic Acidosis > 2 mmol/L 2.8 mmol/L SBP < 90 mmHg 87 , 79 before IVF Septic Shock Criteria Severe Sepsis with hypotension despite IVF resuscitation after 3 liters NS DBP was only 49 mmHg Multiple Organ Dysfunction Syndrome Criteria eividence of more than 2 organs failing Kidneys: Crea 2.4 new Brain : confusion aka encephalopathy Plan: 1. Admit for observation 2. Continue fluid resuscitation with colloid 3. Continue empiric antibiotics with Rocephin 2 g IV every 24 hours as acute UTI is suspected as a focus of infection 4. May have home medications dexamphetamine or amphetamine and atorvastatin 5. Hold off on hydrochlorothiazide for now as he just received volume resuscitation to correct his hypotension 6. Hypertension is not a problem at this time 7. Follow-up blood cultures and urine culture 8. Monitor urine output and follow creatinine 9. CODE STATUS full code 10. DVT phylaxis SCDs were ordered Telehealth visit: Today's history and physical is via interactive telehealth by Esha Ingram MD. The patient is located At [facility] . Physician is located at [facility]. Nursing staff assisted in the patient's exam. The visit being done today meets criteria for a telehealth visit and the patient or patient's parent/guardian is aware the visit is a telehealth visit. Camera start time 21802-11-2025 Camera end time 23902-11-2025 Medical Complexity: Moderate ````````````````````````````````````` Esha Ingram MD ````````````````````````````````````` Disclaimer: This note may contain dictation using voice recognition software. As a result, there may be errors that have gone undetected. Please consider this when interpreting information found in this note. Telehealth: Statement Statement Telehealth Visit: Today's History and Physical is provided via interactive telehealth by Esha Ingram MD.? Patient is located at [facility].? Provider is located at [facility].? Nursing staff assisted with the patient's exam. The visit being done today meets criteria for a telehealth visit and the patient or patient?s parent/guardian is aware the visit is a telehealth visit.
--- NOTE | 2025-02-11 03:18 | PC.NURSE ---
Clarified with DR Nica REBOLLEDO about administration of albumin 2-25% 100ml. She is giving it for septic shock. Each bag to run over 1Hour.
[2025-02-11] MEDS: ALBUMIN HUMAN 25% 25 GM/100 ML VIAL IVPB ×2 (03:27→05:00)
--- NOTE | 2025-02-11 06:30 | PC.NURSE ---
Shift note ([id number]): Patient admitted from ED at 0146. Pleasant, alert and oriented. Denied pain. Ambulated with stand by assist. Sat on side?of bed for a few minutes before standing due to prior dizziness when standing. Denied any dizziness or lightheadedness with ambulation.
[2025-02-11 06:33] LABS: Basophils Absolute Auto 0.06 K/uL (0.00-0.30); Basophils Percent Auto 0.8 % (0.0-3.0); Eosinophils Percent Auto 9.2 % (0.0-7.0); Hematocrit 35.9 % (37.0-53.0); Hemoglobin* 12.1 gm/dL (13.5-17.5); Immature Granulocytes Abs Auto 0.02 K/uL (0.00-0.30); Immature Granulocytes Pct Auto 0.3 %; Lymphocytes Percent Auto 15.3 % (20-44); Mean Corpuscular HGB Conc 34 gm/dL (32-36); Mean Corpuscular Hemoglobin 31 pg (26-34); Mean Corpuscular Volume 92 fL (80-100); Monocytes Percent Auto 7.8 % (0.0-11.0); Neutrophils Absolute Auto 5.21 K/uL (1.7-7.0); Neutrophils Percent Auto 66.6 % (42.0-72.0); Platelet Count* 225 K/uL (140-440); RDW Coefficient of Variation % 13.8 % (11.5-15.5); Slide Review Reflex No; White Blood Count* 7.82 K/uL (4.50-11.00)
[2025-02-11 06:49] LABS: Chloride* 107 mmol/L (96-114); Potassium* 3.6 mmol/L (3.6-5.1); Sodium* 138 mmol/L (135-149)
[2025-02-11 06:51] LABS: Blood Urea Nitrogen* 33 mg/dL (7-30); Creatinine* 1.8 mg/dL (0.5-1.5); Estimated Glomerular Filt Rate 40 ml/min
[2025-02-11 06:52] LABS: Alanine Aminotransferase* 20 U/L (4-50); Alkaline Phosphatase* 59 U/L (40-150); Anion Gap 10 mEq/L (7-15); Aspartate Amino Transferase* 17 U/L (12-35); Bilirubin Total* 0.5 mg/dL (0.1-1.5); Calcium* 8.7 mg/dL (8.4-10.6); Carbon Dioxide* 21 mmol/L (20-32); Glucose* 150 mg/dL (60-115); Total Protein* 6.3 g/dL (6.0-8.3)
[2025-02-11] MEDS: ATORVASTATIN CALCIUM 40 MG TABLET PO (09:02)
[2025-02-11] MEDS: SODIUM CHLORIDE 0.9 % (FLUSH) 10 ML SYRINGE 5 ML IVF ×3 (09:02→20:52)
[2025-02-11] MEDS: ACETAMINOPHEN 325 MG TABLET PO ×2 (09:05→20:04)
[2025-02-11] MEDS: DEXTROAMPHETAMINE/AMPHETAMINE 30 MG TAB PO ×2 (12:21→16:40)
--- NOTE | 2025-02-11 13:01 | REH.PT ---
Pt on hold due to medical condition per RNKatie. Will assess for appropraite level tomorrow. Orders received but not completed at this time.
--- NOTE | 2025-02-11 16:30 | P.IMPN_ITS ---
Assessment and Plan Assessment and plan (1) Severe sepsis: Problem comment: Criteria for severe sepsis WBC > 12,000/mm3 hypotension or low blood pressure suspected source of infection is acute uti he did receive 3 liter ns at ER and BP terra from 82/67 to 79/57 to 101/49 ---since DBP 49 is still low after 3 liters NS, then he has hypotension refractory to 3 liters NS----this is actually meeting criteria for SEPTIC SHOCK multiple organ dysfunction: Kidneys with TERE with Crea 2.4 Neuro with confusion prior to arriving at ED Lactic Acid elevated at 2.8 normal is ( 2 to 2.4 ) 02/10 empirically started on Rocephin 2 grams IV and I added a colloid to his IVF resuscitation : albumin 25 mg in 100 ml per bag x 2 bags 02/11 lactate improved at 1.2 overnight. No longer in severe sepsis. Current stage of sepsis: Sepsis, not severe. Continue to suspect UTI as source, no other infectious source found. Status: Acute (2) Acute kidney injury: Problem comment: Baseline renal function according to our records from 2022 is likely closer 0.8. Creatinine upon admission yesterday was 2.4. It is down to 1.8 today. Will add gentle IV fluids overnight. Continue to hold lisinopril, meloxicam, ta msulosin, and metformin Status: Acute (3) Encephalopathy: Problem comment: Secondary to sepsis, Resolved Status: Acute (4) Leukocytosis: Problem comment: Resolved Status: Acute (5) Acute UTI: Problem comment: Abnormal UA, no urinary symptoms, did have encephalopathy and sepsis, urine cultures pending. Status: Suspected (6) Hyperlipidemia: Status: Acute (7) Narcolepsy: Problem comment: Continue home medications Status: Chronic Subjective Time Seen by Provider: 12:38 Date Seen: 02/11/25 Interval history: Piyush is feeling a bit better today. He is wondering how he got a UTI. He says that he is supposed to be leaving in a few weeks for 6 months of work through [employer]. He denies alcohol use. Exam Narrative: Exam Narrative: General: No acute distress. Awake, alert, oriented x3. No pallor. No jaundice. Oropharynx: Clear. Mucous membranes moist. Cardiovascular: Regular rate and rhythm. No murmurs, gallops, or rubs. Respiratory: Clear to auscultation bilaterally. No wheezes or crackles. Abdomen: Bowel sounds present. Soft, nondistended, nontender. Small reducible umbilical hernia is present. Extremities: No lower extremity edema. Sepsis reassessment note Date exam was performed: 02/11/2025 Time exam was performed: 12:38 p.m. Focused exam: I have reassessed tissue perfusion after bolus given. Current stage of sepsis: Sepsis, improving, no longer severe Const: Vital Signs, click to edit/add: Vital Signs - 24 hr 02/10/25 21:17 02/10/25 21:24 02/10/25 21:27 Temperature 97.8 F Pulse Rate 91 Pulse Rate [Pulse Oximeter] 98 Respiratory Rate 20 22 Blood Pressure 79/57 L Blood Pressure [Ri ght Arm] Blood Pressure [Ri ght Upper Arm] 82/67 L Pulse Oximetry 96 95 94 Oxygen Delivery Me od Room Air 02/10/25 21:36 02/10/25 22:06 02/10/25 22:16 Temperature Pulse Rate 83 80 Pulse Rate [Pulse Oximeter] Respiratory Rate 18 15 18 Blood Pressure 82/51 L 96/63 82/54 L Blood Pressure [Ri ght Arm] Blood Pressure [Ri ght Upper Arm] Pulse Oximetry 97 94 Oxygen Delivery Me thod 02/10/25 22:33 02/10/25 22:46 02/10/25 22:58 Temperature Pulse Rate 79 77 78 Pulse Rate [Pulse Oximeter] Respiratory Rate 22 19 18 Blood Pressure 91/49 L 86/41 L 97/53 L Blood Pressure [Ri ght Arm] Blood Pressure [Ri ght Upper Arm] Pulse Oximetry 95 93 95 Oxygen Delivery Me thod 02/10/25 23:01 02/10/25 23:17 02/10/25 23:31 Temperature Pulse Rate 76 76 74 Pulse Rate [Pulse Oximeter] Respiratory Rate 7 L 35 H 16 Blood Pressure 111/57 L 94/45 L 94/44 L Blood Pressure [Ri ght Arm] Blood Pressure [Ri ght Upper Arm] Pulse Oximetry 97 94 96 Oxygen Delivery Va thod 02/10/25 23:46 02/11/25 00:01 02/11/25 00:17 Temperature Pulse Rate 75 82 77 Pulse Rate [Pulse Oximeter] Respiratory Rate 16 17 26 H Blood Pressure 101/49 L 112/49 L 101/50 L Blood Pressure [Ri ght Arm] Blood Pressure [Ri ght Upper Arm] Pulse Oximetry 94 93 95 Oxygen Delivery Me thod 02/11/25 00:31 02/11/25 00:46 02/11/25 01:01 Temperature Pulse Rate 78 86 77 Pulse Rate [Pulse Oximeter] Respiratory Rate 18 25 H 10 L Blood Pressure 102/51 L 105/67 109/67 Blood Pressure [Ri ght Arm] Blood Pressure [Ri ght Upper Arm] Pulse Oximetry 96 94 95 Oxygen Delivery Me od 02/11/25 01:01 02/11/25 01:17 02/11/25 01:31 Temperature Pulse Rate 77 78 77 Pulse Rate [Pulse Oximeter] Respiratory Rate 10 L 16 16 Blood Pressure 109/67 104/53 L 115/62 Blood Pressure [Ri ght Arm] Blood Pressure [Ri ght Upper Arm] Pulse Oximetry 95 93 94 [facility] 02/11/25 01:58 02/11/25 01:58 02/11/25 04:08 Temperature 97.4 F L 97.4 F L Pulse Rate Pulse Rate [Pulse Oximeter] 77 79 Respiratory Rate 19 20 18 Blood Pressure Blood Pressure [Ri ght Arm] 111/78 132/84 Blood Pressure [Ri ght Upper Arm] Pulse Oximetry 95 95 95 [facility] Air Room Air Room Air 02/11/25 07:30 02/11/25 07:30 02/11/25 11:30 Temperature 97.0 F L 97.0 F L Pulse Rate Pulse Rate [Pulse Oximeter] 78 78 78 Respiratory Rate 18 18 18 Blood Pressure Blood Pressure [Ri ght Arm] 158/84 H 158/84 H Blood Pressure [Ri ght Upper Arm] Pulse Oximetry 92 92 [facility] Room Air Labs Labs: Laboratory Results - last 24 hr 02/10/25 02/10/25 02/10/25 21:25 21:40 23:32 WBC 13.04 H RBC 4.82 Hgb 14.9 Hct 44.0 MCV 91 MCH 31 MCHC 34 RDW Coeff of Joyce 13.6 Plt Count 305 Neut % (Auto) 74.3 H Lymph % (Auto) 10.8 L [place] % (Auto) 7.5 Eos % (Auto) 6.3 Baso % (Auto) 0.6 Neut # (Auto) 9.70 H Lymph # (Auto) 1.40 [place] # (Auto) 1.00 H Eos # (Auto) 0.80 H Baso # (Auto) 0.10 Abs Immat Gran (auto) 0.10 Imm/Tot Granulo (auto) 0.5 INR 0.90 L APTT 29 D-Dimer Quant (PE/DVT) 0.47 VBG pH 7.338 VBG pCO2 45 VBG pO2 31.1 VBG HCO3 24 Sodium 139 Potassium 3.4 L Chloride 104 Carbon Dioxide 22 Anion Gap 13 BUN 30 Creatinine 2.4 H Estimated Creat Clear 26.78 Estimated GFR 28 Glucose 192 H Lactate 2.8 H Calcium 9.7 Total Bilirubin 0.6 AST 23 ALT 28 Alkaline Phosphatase 79 Troponin I 0.02 C-Reactive Protein < 0.5 L NT-Pro-B Natriuret Pep 278 Total Protein 7.0 Albumin 4.3 Procalcitonin 0.17 Urine Color Yellow Urine Appearance Slightly Cloudy A Urine pH 5.5 Ur Specific [place] >= 1.030 Urine Protein 3+ A Urine Glucose (UA) Negative Urine Ketones 1+ A Urine Blood 3+ A Urine Nitrite Negative Urine Bilirubin 1+ A Urine Urobilinogen 0.2 Ur Leukocyte Esterase 1+ A Urine RBC 5-10 A Urine WBC 2-5 Ur Squamous Epith Cells None Urine Bacteria None Urine Opiates Screen Ur Oxycodone Screen Urine Methadone Screen Ur Barbiturates Screen U Tricyclic Antidepress Ur Phencyclidine Scrn Ur Amphetamines Screen U Methamphetamines Scrn U Benzodiazepines Scrn Urine Cocaine Screen U Marijuana (THC) Screen Ur Drug Screen Comment Ethyl Alcohol SARS-CoV-2 (PCR) Negative SARS-CoV-2 Influenza Type A (PCR) Negative PCR FLU A Influenza Type B (PCR) Negative PCR FLU B RSV (PCR) Negative PCR RSV POC Creatinine 2.6 H POC Troponin I 0.01 02/10/25 02/11/25 02/11/25 23:40 01:07 01:27 WBC RBC Hgb Hct MCV MCH MCHC RDW Coeff of Joyce Plt Count Neut % (Auto) Lymph % (Auto) [place] % (Auto) Eos % (Auto) Baso % (Auto) Neut # (Auto) Lymph # (Auto) [place] # (Auto) Eos # (Auto) Baso # (Auto) Abs Immat Gran (auto) Imm/Tot Granulo (auto) INR APTT D-Dimer Quant (PE/DVT) VBG pH VBG pCO2 VBG pO2 VBG HCO3 Sodium Potassium Chloride Carbon Dioxide Anion Gap BUN Creatinine Estimated Creat Clear Estimated GFR Glucose Lactate 1.2 Calcium Total Bilirubin AST ALT Alkaline Phosphatase Troponin I C-Reactive Protein NT-Pro-B Natriuret Pep Total Protein Albumin Procalcitonin Urine Color Urine Appearance Urine pH Ur Specific [place] Urine Protein Urine Glucose (UA) Urine Ketones Urine Blood Urine Nitrite Urine Bilirubin Urine Urobilinogen Ur Leukocyte Esterase Urine RBC Urine WBC Ur Squamous Epith Cells Urine Bacteria Urine Opiates Screen Negative Ur Oxycodone Screen Negative Urine Methadone Screen Negative Ur Barbiturates Screen Negative U Tricyclic Antidepress Negative Ur Phencyclidine Scrn Negative Ur Amphetamines Screen POSITIVE A U Methamphetamines Scrn POSITIVE A U Benzodiazepines Scrn POSITIVE A Urine Cocaine Screen Negative U Marijuana (THC) Screen Negative Ur Drug Screen Comment See Note Ethyl Alcohol < 0.01 SARS-CoV-2 (PCR) Influenza Type A (PCR) Influenza Type B (PCR) RSV (PCR) POC Creatinine POC Troponin I 0.02 02/11/25 05:51 WBC 7.82 RBC 3.90 L Hgb 12.1 L Hct 35.9 L MCV 92 MCH 31 MCHC 34 RDW Coeff of Joyce 13.8 Plt Count 225 Neut % (Auto) 66.6 Lymph % (Auto) 15.3 L [place] % (Auto) 7.8 Eos % (Auto) 9.2 H Baso % (Auto) 0.8 Neut # (Auto) 5.21 Lymph # (Auto) 1.20 [place] # (Auto) 0.60 Eos # (Auto) 0.70 H Baso # (Auto) 0.06 Abs Immat Gran (auto) 0.02 Imm/Tot Granulo (auto) 0.3 INR APTT D-Dimer Quant (PE/DVT) VBG pH VBG pCO2 VBG pO2 VBG HCO3 Sodium 138 Potassium 3.6 Chloride 107 Carbon Dioxide 21 Anion Gap 10 BUN 33 H Creatinine 1.8 H Estimated Creat Clear 35.70 Estimated GFR 40 Glucose 150 H Lactate Calcium 8.7 Total Bilirubin 0.5 AST 17 ALT 20 Alkaline Phosphatase 59 Troponin I C-Reactive Protein NT-Pro-B Natriuret Pep Total Protein 6.3 Albumin 4.0 Procalcitonin Urine Color Urine Appearance Urine pH Ur Specific [place] Urine Protein Urine Glucose (UA) Urine Ketones Urine Blood Urine Nitrite Urine Bilirubin Urine Urobilinogen Ur Leukocyte Esterase Urine RBC Urine WBC Ur Squamous Epith Cells Urine Bacteria Urine Opiates Screen Ur Oxycodone Screen Urine Methadone Screen Ur Barbiturates Screen U Tricyclic Antidepress Ur Phencyclidine Scrn Ur Amphetamines Screen U Methamphetamines Scrn U Benzodiazepines Scrn Urine Cocaine Screen U Marijuana (THC) Screen Ur Drug Screen Comment Ethyl Alcohol SARS-CoV-2 (PCR) Influenza Type A (PCR) Influenza Type B (PCR) RSV (PCR) POC Creatinine POC Troponin I
[2025-02-11] MEDS: LACTATED RINGERS 1000 ML 1,000 ML 75 ML IV (17:51)
--- NOTE | 2025-02-11 18:17 | PC.NURSE ---
end of shift. pt has been sleepy and tired. he had a fernandez and got po meds. he is taking him home Adderall . he is up with stand by assist. Denied any dizziness or lightheadedness with ambulation. he is eating, drinking and voiding. SL are patent x2. he has fluids runing.
[2025-02-11] MEDS: 0.9 % SODIUM CHLORIDE 250 ml IV (21:46)
[2025-02-12] VITALS (7 sets, daily range): BP systolic 169–210; BP diastolic 90–113; PULSE 65–79; RESP 16–18; TEMP 36.5–36.7; O2SAT 94–95
[2025-02-12] MEDS: lisinopriL 20 MG TABLET PO ×3 (00:06→10:04)
[2025-02-12] MEDS: hydroCHLOROthiazide 25 MG TABLET 12.5 MG PO (00:06)
--- NOTE | 2025-02-12 04:03 | W.PM.CROSSCO ---
Subjective Subjective Principal diagnosis: sepsis, called for elevated bp x Cover Objective Objective Data Details: blood pressure in the 200, despite receiving half dose of home meds started earlier this evening. Assessment and Plan Assessment and plan (1) Hypertension: Status: Acute Plan Hypertension- poorly controlled. Will increase his meds back to his home dose. give additional 12.5 mg hctz and 20mg of lisinopril now. Cr treading down 1.8 from 2.4. Will add BMP onto todays labs to ensure it continues to normalize. Will order his home meds at full dose starting tommorrow. Melecio Khan DO, Pharm. D.
[2025-02-12] MEDS: hydroCHLOROthiazide 12.5 MG CAPSULE PO ×2 (04:19→10:04)
[2025-02-12] MEDS: DEXTROAMPHETAMINE/AMPHETAMINE 30 MG TAB PO (06:36)
--- NOTE | 2025-02-12 06:42 | PC.NURSE ---
Addendum entered by Sandra Gao RN 02/12/25 07:39: Pt denied any vision changes when asked throughout the shift. He also stated his chronic headache wasn't any worse despite rising blood pressures throughout the shift. Original Note: End of shift note [id number]: Pt A&Ox4 and able to make needs known. He is transferring/ambulating with SBA. Pt reports he has a chronic headache at baseline that Tylenol does not help. Pt noted to have elevated blood pressures throughout the shift. Scheme Technician updated MD Muse last evening and Hugh CEJA throughout the shift with new orders placed- see EMAR. Scheme Technician updated MD Reese at [phone] regarding continued high blood pressure readings. Documentation notes that pt is usually an everyday smoker though he has refused Nicotine patch when offered. Pt has been afebrile and on RA throughout the shift. Pt SL as he is eating and drinking well and blood pressures have been trending high since last evening. Pt requested to sleep in his shorts. Pt voided frequently throughout the shift due to resuming HCTZ. Bed alarm on for safety and call light within reach. ?
[2025-02-12 07:03] LABS: Chloride* 106 mmol/L (96-114)
[2025-02-12 07:04] LABS: Potassium* 4.1 mmol/L (3.6-5.1); Sodium* 137 mmol/L (135-149)
[2025-02-12 07:07] LABS: Anion Gap 9 mEq/L (7-15); Blood Urea Nitrogen* 27 mg/dL (7-30); Calcium* 9.4 mg/dL (8.4-10.6); Carbon Dioxide* 22 mmol/L (20-32); Est. Creatinine Clearance* 64.26; Estimated Glomerular Filt Rate 81 ml/min; Glucose* 183 mg/dL (60-115)
--- NOTE | 2025-02-12 08:35 | PM.DS1 ---
DS: Providers Provider Time Seen by Provider: 08:24 Date Seen: 02/12/25 Date of admission: 02/11/25 01:41 Primary care physician: Not a Local Provider Admitting Clinician: Esha Ingram MD Consults: 02/11/25 02:53 Consult to Quality Review Specialist [CONS] Routine Comment: Reason for Consult:: Social Service Consult 02/11/25 09:00 Consult to Physical Therapy [CONS] Routine Comment: Reason(s) for PT Consult:: Evaluate Ambulation Any Restrictions?:: No Restrictions Attending Physician on discharge: Janet Daniel MD Date of Discharge: 02/12/25 DS: Diagnosis Discharge Diagnosis (1) Septic shock: Status: Acute Problem details: Resolved, suspect due to UTI (2) Severe sepsis: Status: Acute Problem details: Criteria for severe sepsis WBC > 12,000/mm3 hypotension or low blood pressure suspected source of infection is acute uti he did receive 3 liter ns at ER and BP terra from 82/67 to 79/57 to 101/49 ---since DBP 49 is still low after 3 liters NS, then he has hypotension refractory to 3 liters NS----this is actually meeting criteria for SEPTIC SHOCK multiple organ dysfunction: Kidneys with TERE with Crea 2.4 Neuro with confusion prior to arriving at ED Lactic Acid elevated at 2.8 normal is ( 2 to 2.4 ) 02/10 empirically started on Rocephin 2 grams IV and I added a colloid to his IVF resuscitation : albumin 25 mg in 100 ml per bag x 2 bags 02/11 lactate improved at 1.2 overnight. No longer in severe sepsis. Current stage of sepsis: Sepsis, not severe. Continue to suspect UTI as source, no other infectious source found. 02/12 Sepsis resolved. Suspect source is UTI, see below. (3) Leukocytosis: Status: Acute Problem details: Resolved (4) Encephalopathy: Status: Acute Problem details: Secondary to sepsis, Resolved (5) Acute UTI: Status: Suspected Problem details: Abnormal UA, bladder wall thickening on CT, no urinary symptoms, did have encephalopathy and septic shock, urine cultures pending. 02/12 Improving on 3rd gen cephalosporin. UC <50K CFU Mixed G+ mayra. Transition to PO cephalosporin, d/c home. (6) Acute kidney injury: Status: Acute Problem details: Baseline renal function according to our records from 2022 is likely closer 0.8. Creatinine upon admission yesterday was 2.4. It is down to 1.8 today. Will add gentle IV fluids overnight. Continue to hold lisinopril, meloxicam, tamsulosin, and metformin 02/12 ARF resolved, Cr back to baseline, 0.8. (7) Hypertension: Status: Chronic Problem details: BP now elevated since sepsis is resolved and antihypertensives were held due to low BPs and ARF yesterday; improved after HCTZ, lisinopril, 1 dose of amlodipine (8) Narcolepsy: Status: Chronic Problem details: Continue home medications (9) Hyperlipidemia: Status: Chronic (10) Neck mass: Status: Acute Problem details: Soft, mobile mass anterior to hyoid. Will need outpatient neck CT (11) Otitis externa: Status: Ruled-out Problem details: - diagnosed as mild, left ear 02/01/25 in the clinic. Was prescribed drops for both ears, never picked them up. - Exam is unremarkable. DS: Summary Hospital Course Hospital Course: NOTE TO PCP: Patient has a new mass on his anterior neck found incidentally on admission exam. This should be evaluated by outpatient CT neck and/or US. I have asked this patient to follow up with you for this. Hank Spangler is a 70-year-old male with history of narcolepsy, hypertension, and hypercholesterolemia who presented through the emergency department for weakness, muscle pain, abdominal and groin pain for the last day. His daughter also noticed that he seemed confused. In the emergency department it was noted that his blood pressure was low, 79-82/57-67, lactate elevated at 2.8, and creatinine elevated above baseline. He was given 3 L normal saline and a CT abdomen and pelvis was obtained. This showed nonobstructing bilateral kidney stones, no hydronephrosis, and mild bladder wall thickening. His urinalysis was abnormal. Blood cultures were also obtained. He was started on ceftriaxone for presumed UTI. Blood pressures improved with bolus and repeat lactate had normalized. Was admitted to the hospital on ceftriaxone. Blood pressures remained low yesterday and is creatinine, although it started to improve, had not yet normalized, so some maintenance fluids were started and blood pressure medications were held. Today he is much improved, encephalopathy has completely resolved, sepsis is completely resolved, creatinine has returned to baseline, and his blood pressures are markedly elevated for which his usual blood pressure medications are restarted today. He is doing well. Blood cultures x2 are no growth to date, and urine culture is pending. Since he has greatly improved, is stable, and is no longer in sepsis, he is discharged home today with oral generation cephalosporin and we will call him with results of the urine culture if it shows an organism resistant to the 3rd generation cephalosporin. Time Spent with Patient Time attestation: Total time spent providing and/or coordinating discharge services: Today I spent 45 minutes seeing and discharging the patient, discussing with the patient's daughter and son-in-law, reviewing [facility] and [employer] notes/diagnostics/labs, discussing the care plan with our care team that includes social work, PT/OT, pharmacy, RT, long-term and documenting my impressions and plan in the medical record. Time spent: Greater than 30 minutes Exam Narrative: Exam Narrative: General: No acute distress. Awake, alert, oriented x3. No pallor. No jaundice. Ears: No erythema or drainage. Nontender to movement or palpation. Oropharynx: Clear. Mucous membranes moist. Cardiovascular: Regular rate and rhythm. No murmurs, gallops, or rubs. Respiratory: Clear to auscultation bilaterally. No wheezes or crackles. Abdomen: Bowel sounds present. Soft, nondistended, nontender. Small reducible umbilical hernia is present. Extremities: No lower extremity edema. Const: Vital Signs, click to edit/add: Vital Signs - 24 hr 02/11/25 11:30 02/11/25 15:15 02/11/25 15:15 Temperature 97.0 F L 98.9 F Pulse Rate [Pulse Oximeter] 78 87 87 Respiratory Rate 18 16 16 Blood Pressure [Le ft Arm] Blood Pressure [Ri ght Arm] 158/84 H 149/91 H Pulse Oximetry 92 94 Oxygen Delivery Me thod Room Air Room Air 02/11/25 19:55 02/11/25 22:04 02/11/25 23:30 Temperature 98.2 F 97.9 F Pulse Rate [Pulse Oximeter] 82 82 69 Respiratory Rate 18 18 16 Blood Pressure [Le ft Arm] 199/103 H Blood Pressure [Ri ght Arm] 173/98 H 197/109 H Pulse Oximetry 95 95 Oxygen Delivery Me thod Room Air Room Air 02/11/25 23:45 02/12/25 01:55 02/12/25 03:23 Temperature 98.1 F Pulse Rate [Pulse Oximeter] 74 Respiratory Rate 16 Blood Pressure [Le ft Arm] Blood Pressure [Ri ght Arm] 203/113 H 192/101 H 210/107 H Pulse Oximetry 94 Oxygen Delivery Me thod Room Air 02/12/25 06:39 02/12/25 07:40 02/12/25 07:45 Temperature 97.7 F Pulse Rate [Pulse Oximeter] 65 65 Respiratory Rate 18 18 Blood Pressure [Le ft Arm] 190/111 H 194/113 H Blood Pressure [Ri ght Arm] Pulse Oximetry 95 Oxygen Delivery Me thod Room Air DS: Data Data Completed and Pending Completed studies during hospitalization: 02/10/2025 EKG: Normal sinus rhythm, 92 beats per minute, normal EKG. Ordering Physician: Bria Black M.D. Date of Service: 02/10/25 Procedure(s): XR chest 1V portable Accession Number(s): [id number] cc: Provider,Not a Local; Bria Black M.D.~ For Patients: As a result of the Cures Act, medical imaging exams and procedure reports are released immediately into your electronic medical record. You may view this report before your referring provider. If you have questions, please contact your health care provider. Indication: Hypotension, upper back pain Technique: Single view of the chest Comparison: Chest radiograph performed 12/30/2018 Findings/Impression: No acute cardiopulmonary process detected. Dictated by Naveen Kim MD @ 02/10/2025 10:39:59 PM (Electronically Signed) Ordering Physician: Bria Black M.D. Date of Service: 02/10/25 Procedure(s): CT abdomen pelvis wo con Accession Number(s): [id number] cc: Provider,Not a Local; Bria Black M.D.~ For Patients: As a result of the Cures Act, medical imaging exams and procedure reports are released immediately into your electronic medical record. You may view this report before your referring provider. If you have questions, please contact your health care provider. Indication: Left lower quadrant abdominal pain, history of kidney stones Technique: Noncontrast CT through the abdomen and pelvis with multiplanar reformats. Comparison: CT chest abdomen pelvis performed 06/24/2018 Findings: Lower chest: No acute abnormality appreciated. Hepatobiliary: No significant parenchymal abnormality is appreciated. Cholelithiasis without CT evidence of cholecystitis. Spleen: Unremarkable. Pancreas: No acute abnormality appreciated. Adrenal glands: No acute abnormality appreciated. Kidneys: Chronic nonobstructing bilateral renal stones noted. No hydronephrosis. Bowel: No obstruction. Diverticulosis. No focal perienteric or pericolonic stranding is appreciated. The appendix is visualized and appears unremarkable. Vascular: Calcified atherosclerosis. Lymph nodes: No gross lymphadenopathy. Peritoneum: No free air. No free fluid. : Mild wall thickening of the decompressed bladder. Soft tissues: No acute abnormality appreciated. Bones: No acute fracture. No lytic or blastic lesion. Degenerative changes of the spine and pelvis. Chronic L1 compression fracture. Impression: 1. Bilateral nonobstructing renal stones. No hydronephrosis. 2. Mild wall thickening of a decompressed bladder, nonspecific but can be correlated for UTI/cystitis. 3. Diverticulosis. 4. Cholelithiasis. Please note that all CT scans at this facility use dose modulation, iterative reconstruction, and/or weight-based dosing when appropriate to reduce radiation dose to as low as reasonably achievable. Dictated by Naveen Kim MD @ 02/10/2025 11:00:06 PM (Electronically Signed) Labs on day of discharge: Labs from last 24 hours 02/12/25 05:51 Sodium 137 Potassium 4.1 Chloride 106 Carbon Dioxide 22 Anion Gap 9 BUN 27 Creatinine 1.0 Estimated Creat Clear 64.26 Estimated GFR 81 Glucose 183 H Calcium 9.4 Preliminary micro results at discharge 02/10/25 21:35 Blood Culture - Preliminary Blood NO GROWTH AFTER 24 HOURS 02/10/25 21:40 Blood Culture - Preliminary Blood NO GROWTH AFTER 24 HOURS 02/10/25 23:32 Urine Culture - Preliminary Urine,Clean Catch Culture in Progress Discharge Plan Discharge Disposition: Home, Self-Care Date of Admission: 02/11/25 01:41 Attending Provider on Discharge: Janet Daniel Primary Care Provider: Provider,Not a Local Condition: Improved Anticipated Discharge Date/Time: 02/12/25 12:26 Discharge Medications: New cefdinir 300 mg capsule 300 mg PO BID 9 Days Qty: 18 0RF Continued atorvastatin 40 mg tablet 40 mg PO DAILY dextroamphetamine-amphetamine 30 mg tablet 1 tab PO TID hydrochlorothiazide 25 mg tablet 25 mg PO DAILY hydrocortisone-acetic acid 1-2 % drops 4 drp otic (ear) QID Patient Comments: ADMINISTER 4 DROPS INTO THE LEFT EAR 4 (FOUR) TIMES A DAY FOR 7 DAYS. ketoconazole 2 % shampoo 1 applic topical 2XW PRN meloxicam 15 mg tablet 15 mg PO DAILY PRN (Reason: moderate pain) lisinopril 40 mg tablet 40 mg PO DAILY metformin 500 mg tablet extended release 24 hr 1,000 mg PO DAILY sertraline 100 mg tablet 100 mg PO DAILY sildenafil 100 mg tablet 100 mg PO DAILY PRN (Reason: intercourse) tamsulosin 0.4 mg capsule 0.4 mg PO DAILY pantoprazole 40 mg tablet,delayed release (DR/EC) 40 mg PO QAM metronidazole 0.75 % cream 1 applic topical DAILY Discharge Orders: Discharge Order (Routine); Ordered 02/12/25 Ordered By: Janet Daniel Additional Instructions: f/u with PCP later this week. Return for headache, CP, SOB, return of fever, blood in the urine, or low BP. Activity Level: No Restrictions Discharge Diet: Regular Follow Up Appointments: Provider,Not a Local [Primary Care Provider, Family Practice] Referral Note: later this week Forms: [employer] Info Instructions
[2025-02-12] MEDS: ATORVASTATIN CALCIUM 40 MG TABLET PO (08:39)
[2025-02-12] MEDS: OMEPRAZOLE 20 MG CAPSULE DR 40 MG PO (08:39)
[2025-02-12] MEDS: SODIUM CHLORIDE 0.9 % (FLUSH) 10 ML SYRINGE 5 ML IVF (08:39)
[2025-02-12] MEDS: SERTRALINE 100 MG TABLET PO (08:39)
[2025-02-12] MEDS: cefTRIAXone 1 GM in 0.9 % SODIUM CHLORIDE Mini-bag 100 ML IVPB (09:37)
[2025-02-12] MEDS: AMLODIPINE 10 MG TABLET 5 MG PO (10:04)
--- NOTE | 2025-02-12 13:02 | PC.NURSE ---
discharge. pt is tired and sleepy/. he is more alert today. when asked if he had pain he said no, but then he said he had a GRAFF.and got po meds. he is taking him home Adderall . he is up ab marianne. Denied any dizziness or lightheadedness with ambulation. he is eating, drinking and voiding. SL are patent x2 d/c intact. went over discharge medications, he needs to call for appointment, education and instructions. he signed personal belonging sheet. he walked out with daughter.
== END 2025-02-12 13:05 | disposition home or self-care (01) ==
LOC: ED 02-11 01:12 → MEDSURG 02-11 01:43
PROVIDERS: Internal Medicine; Admitting Provider Hospitalist; Emergency Provider Family Medicine; Visit Provider Hospitalist
DX: A41.9 Sepsis, unspecified organism (principal); N39.0 Urinary tract infection, site not specified; R65.21 Severe sepsis with septic shock; G93.41 Metabolic encephalopathy; N17.9 Acute kidney failure, unspecified; H60.92 Unspecified otitis externa, left ear; R06.02 Shortness of breath; R22.1 Localized swelling, mass and lump, neck; E11.9 Type 2 diabetes mellitus without complications; I10 Essential (primary) hypertension; M54.89 Other dorsalgia; N20.0 Calculus of kidney; R10.32 Left lower quadrant pain; G47.419 Narcolepsy without cataplexy; E78.5 Hyperlipidemia, unspecified; Z51.81 Encounter for therapeutic drug level monitoring; Z79.899 Other long term (current) drug therapy
CPT/HCPCS: 36415; 71045; 74176; 80048; 80053; 80306; 81001; 82077; 82565; 82803; 83605; 83880; 84145; 84484; 85025; 85379; 85610; 85730; 86140; 87040; 87086; 87631; 93005; 94761; 96361; 96365; 96366; 96368; 97116; 97161; 97530; 99285; A9270; G0378; J0696; J7030; J7050; J7120; P9047